=== PATIENT | male | born 1945 | race Caucasian/White ===

== ENCOUNTER 2016-11-11 10:32 | Inpatient (IN) | payer MEDICARE ==
[~2016-11-11] VITALS: Ht 172.7 cm; Wt 92.5 kg
[2016-11-11] VITALS (10 sets, daily range): BP systolic 131–177; BP diastolic 67–87; PULSE 58–92; RESP 16–20; TEMP 97.5–98.7; O2SAT 96–99
[~2016-11-11 10:32] MED LIST: AMLO5TAB96 PO; ASPI81 PO; CLOP75 PO; GLYB1TAB51 PO; KLOR20TA6 PO; LIPI80TA16; LOTE20TA3; SITA100 PO; TELM40 PO
[2016-11-11] MEDS ORDERED: SODIUM CHLORIDE 0.9% FLUSH 10 ML FLUSH IVF PRN (10:45)
--- NOTE | 2016-11-11 10:58 | PD ---
HPI Chief Complaint: Cardiac Complaint Time Seen by Provider: 10:46 Travel History International Travel<30 days: No Contact w/Intl Traveler<30days: No Traveled to known affect area: No History of Present Illness HPI Patient is a 71-year-old male presents emergency department with exertional chest pain for the past few days. Patient states that the pain does not radiate but is accompanied with some mild shortness of breath mild nausea without vomiting. States she's never had this before. States he has a history of stents is followed by Dr. Grossman his last nuclear stress test was less than a year ago. He called Dr. Grossman today who recommended that he come to the emergency department the scene. He took a baby aspirin this morning he is currently chest pain-free and states the pain only occurs with exertion. Denies any abdominal pain and vomiting constipation diarrhea headache or extremity pain. He took a baby aspirin this morning. PFSH Past Medical History Arthritis: Yes (FINGERS AND HANDS) Asthma: No Autoimmune Disease: No Heart Rhythm Problems: No Cancer: No Cardiovascular Problems: Yes High Cholesterol: Yes Chest Pain: No Congestive Heart Failure: No COPD: No Cerebrovascular Accident: No Diabetes: Yes Patient Takes Glucophage: No Gastrointestinal Disorders: No GERD: No Glaucoma: No Headaches: No Hepatitis: Yes (DRUG INDUCED HEP 10+ YRS AGO) Hiatal Hernia: No Hypertension: Yes Medical other: No Musculoskeletal: No Neurologic: No Respiratory: No Myocardial Infarction: No Seizures: No Sleep Apnea: No Thyroid Disease: No Ulcer: No Past Surgical History Surgical History: No Previous Surgery Abdominal Surgery: No AICD: No Cardiac Surgery: No Ear Surgery: No Endocrine Surgery: No Eye Surgery: No Genitourinary Surgery: No Gynecologic Surgery: No Neurologic Surgery: No Oral Surgery: Yes (ALL TEETH PULLED) Pacemaker: No Thoracic Surgery: No Other Surgery: Yes ([facility] EMBIL[employer]) Social History Alcohol Use: Yes (OCCASIONAL WINE) Tobacco Use: No Substance Use: No Allergies-Medications (Allergen,Severity, Reaction): Coded Allergies: Macrolides (Verified Allergy, Severe, 02/15/07) Uncoded Allergies: MYCIN (Allergy, Mild, 02/15/07) Reported Meds & Prescriptions Reported Meds & Active Scripts Active Reported Sm Magnesium (Magnesium) 250 Mg Tab 250 Mg PO DAILY Vitamin D-1000 (Cholecalciferol) 1,000 Unit Tab 2,000 Units PO DAILY Glipizide 5 Mg Tab 5 Mg PO BIDAC Take 30 minutes before a meal Januvia (Sitagliptin Phosphate) 50 Mg Tab 50 Mg PO DAILY Potassium Chloride ER (Potassium Chloride) 20 Meq Tab 20 Meq PO DAILY Telmisartan 80 Mg Tab 80 Mg PO HS Lipitor (Atorvastatin Calcium) 40 Mg Tab 40 Mg PO HS Lantus Solostar Pen Inj (Insulin Glargine) 300 Unit/3 Ml Pen 30 Units SQ HS Hydrochlorothiazide 25 Mg Tab 25 Mg PO DAILY Aspirin Low Dose (Aspirin) 81 Mg Chew 162 Mg CHEW DAILY Physical Exam Narrative GENERAL: Well-developed well-nourished, quite pleasant in no apparent distress. SKIN: Focused skin assessment warm/dry. HEAD: Atraumatic. Normocephalic. EYES: Pupils equal and round. No scleral icterus. No injection or drainage. ENT: No nasal bleeding or discharge. Mucous membranes pink and moist. NECK: Trachea midline. No JVD. CARDIOVASCULAR: Regular rate and rhythm. No murmur appreciated. Minimally tachycardic when he laughs. RESPIRATORY: No accessory muscle use. Clear to auscultation. Breath sounds equal bilaterally. GASTROINTESTINAL: Abdomen soft, non-tender, nondistended. Hepatic and splenic margins not palpable. MUSCULOSKELETAL: No obvious deformities. No clubbing. No cyanosis. No edema. NEUROLOGICAL: Awake and alert. No obvious cranial nerve deficits. Motor grossly within normal limits. Normal speech. PSYCHIATRIC: Appropriate mood and affect; insight and judgment normal. Data Data Last Documented VS Vital Signs Date Time Temp Pulse Resp B/P Pulse Ox O2 Delivery O2 Flow Rate FiO2 11/11/16 11:46 66 20 143/80 98 Room Air 11/11/16 10:33 97.5 Orders Electrocardiogram (11/11/16 10:37) Ckmb (Isoenzyme) Profile (11/11/16 10:37) Complete Blood Count With Diff (11/11/16 10:37) Comprehensive Metabolic Panel (11/11/16 10:37) Magnesium (Mg) (11/11/16 10:37) Prothrombin Time / Inr (Pt) (11/11/16 10:37) Act Partial Throm Time (Ptt) (11/11/16 10:37) Troponin I (11/11/16 10:37) Chest, Single Ap (11/11/16 10:37) Ecg Monitoring (11/11/16 10:37) Iv Access Insert/Monitor (11/11/16 10:37) Oximetry (11/11/16 10:37) Oxygen Administration (11/11/16 10:37) Sodium Chloride 0.9% Flush (Ns Flush) (11/11/16 10:45) Ct Pulmonary Angiogram (11/11/16 ) Aspirin Chew (Aspirin Chew) (11/11/16 11:30) Aspirin Chew (Aspirin Chew) (11/11/16 11:30) Iohexol 350 Inj (Omnipaque 350 Inj) (11/11/16 12:25) Electrocardiogram (11/11/16 ) Troponin I (11/11/16 12:57) Heparin Infusion CECIL.Q1H (11/11/16 13:37) Heparin Inj (Heparin Inj) (11/11/16 19:45) Heparin Inj (Heparin Inj) (11/11/16 19:45) Heparin-D5w Inj (Heparin-D5w Inj) (11/11/16 13:45) Cbc No Diff, Includes Plts (11/14/16 06:00) Act Partial Throm Time (Ptt) (11/11/16 20:37) Occult Blood (Hemoccult) Stool (11/11/16 13:37) Nitroglycerin 2% Oint (Nitroglycerin 2% (11/11/16 13:45) Heparin Inj (Heparin Inj) (11/11/16 13:45) Consult Cardiology (11/11/16 ) (Hub Use Only)Inp Phy Cons/Ref (11/11/16 ) Admit Order (Ed Use Only) (11/11/16 ) Labs Laboratory Tests Test 11/11/16 11/11/16 11:04 14:00 White Blood Count 9.9 TH/MM3 Red Blood Count 4.51 MIL/MM3 Hemoglobin 14.2 GM/DL Hematocrit 39.6 % Mean Corpuscular Volume 87.8 FL Mean Corpuscular Hemoglobin 31.4 PG Mean Corpuscular Hemoglobin 35.7 % Concent Red Cell Distribution Width 13.0 % Platelet Count 150 TH/MM3 Mean Platelet Volume 9.7 FL Neutrophils (%) (Auto) 73.5 % Lymphocytes (%) (Auto) 16.5 % Monocytes (%) (Auto) 7.1 % Eosinophils (%) (Auto) 2.3 % Basophils (%) (Auto) 0.6 % Neutrophils # (Auto) 7.2 TH/MM3 Lymphocytes # (Auto) 1.6 TH/MM3 Monocytes # (Auto) 0.7 TH/MM3 Eosinophils # (Auto) 0.2 TH/MM3 Basophils # (Auto) 0.1 TH/MM3 CBC Comment DIFF FINAL Differential Comment Prothrombin Time 10.2 SEC Prothromb Time International 0.9 RATIO Ratio Activated Partial 23.1 SEC Thromboplast Time Sodium Level 143 MEQ/L Potassium Level 3.2 MEQ/L Chloride Level 110 MEQ/L Carbon Dioxide Level 23.8 MEQ/L Anion Gap 9 MEQ/L Blood Urea Nitrogen 19 MG/DL Creatinine 0.99 MG/DL Estimat Glomerular Filtration 75 ML/MIN Rate Random Glucose 176 MG/DL Calcium Level 8.4 MG/DL Magnesium Level 1.2 MG/DL Total Bilirubin 0.5 MG/DL Aspartate Amino Transf 35 U/L (AST/SGOT) Alanine Aminotransferase 30 U/L (ALT/SGPT) Alkaline Phosphatase 42 U/L Total Creatine Kinase 95 U/L Troponin I 0.09 NG/ML 0.12 NG/ML Total Protein 5.9 GM/DL Albumin 2.9 GM/DL MDM Medical Decision Making Medical Screen Exam Complete: Yes Emergency Medical Condition: Yes Interpretation(s) EKG shows sinus rhythm with normal axis normal R-wave progression. No concerning ST segment changes. Intervals within normal limits. This normal EKG Differential Diagnosis Chest pain, ACS, AMI, coronary disease, unstable angina. Narrative Course Patient was discussed with Dr. Grossman recommends admitting the patient to hospital full ACS protocol including heparinization. He will see and evaluate the patient later today. He is moving the patient's case and stated that it sounded like the patient was having unstable angina when he called the office today. I did discuss with Dr. Grossman as well as the patient troponin elevation to 0.09, CT PE protocol was negative. Many of his labs shows some very minimal electrolyte abnormalities nothing critical. Was then discussed with Dr. Good who agrees for admission. Diagnosis Primary Impression: Chest pain Qualified Code: R07.9 - Chest pain, unspecified type Additional Impressions: Elevated troponin Angina at rest Admitting Information Admitting Physician Requests: Admit Condition: Stable Elder Turk MD Nov 11, 2016 10:57
[2016-11-11 11:18] LABS: AUTOMATED NEUTROPHIL # 7.2 TH/MM3 (1.8-7.7); BASOPHIL # 0.1 TH/MM3 (0-0.2); BASOPHIL % 0.6 % (0.0-2.0); EOSINOPHIL # 0.2 TH/MM3 (0-0.4); EOSINOPHIL % 2.3 % (0.0-4.0); HEMATOCRIT 39.6 % (39.0-51.0); HEMO FLAGS DIFF FINAL; LYMPH % 16.5 % (9.0-44.0); LYMPHOCYTE # 1.6 TH/MM3 (1.0-4.8); MEAN CELL VOLUME 87.8 FL (80.0-100.0); MEAN CORPUSCULAR HEMOGLOBIN 31.4 PG (27.0-34.0); MEAN CORPUSCULAR HGB CONC 35.7 % (32.0-36.0); MONO % 7.1 % (0.0-8.0); NEUT % 73.5 % (16.0-70.0); PLATELET COUNT 150 TH/MM3 (150-450); RED BLOOD COUNT 4.51 MIL/MM3 (4.50-5.90); WHITE BLOOD COUNT 9.9 TH/MM3 (4.0-11.0)
[2016-11-11] MEDS ORDERED: ASPIRIN 81 MG CHEW TAB CHEW ONE ×2 (11:30)
[2016-11-11 11:33] LABS: APTT (PATIENT) 23.1 SEC (24.3-30.1); INTERNATIONAL NORMALIZED RATIO 0.9 RATIO; PROTHROMBIN TIME - PATIENT 10.2 SEC (9.8-11.6)
[2016-11-11 11:40] LABS: ALKALINE PHOSPHATASE 42 U/L (45-117); ALT (GPT) 30 U/L (12-78); ANION GAP 9 MEQ/L (5-15); AST (GOT) 35 U/L (15-37); BICARBONATE 23.8 MEQ/L (21.0-32.0); BLOOD UREA NITROGEN 19 MG/DL (7-18); CHLORIDE 110 MEQ/L (98-107); CREATINE KINASE 95 U/L (39-308); GLOMERULAR FILTRATION RATE 75 ML/MIN (>89); MAGNESIUM 1.2 MG/DL (1.5-2.5); POTASSIUM 3.2 MEQ/L (3.5-5.1); SODIUM (NA) 143 MEQ/L (136-145); TOTAL BILIRUBIN ADULT 0.5 MG/DL (0.2-1.0)
[2016-11-11] MEDS ORDERED: TELM1TAB2 PO (11:42)
[2016-11-11] MEDS ORDERED: HYDR25TA5 PO (11:42)
[2016-11-11] MEDS ORDERED: LIPI40TA PO (11:42)
[2016-11-11] MEDS ORDERED: GLIP5TAB8 PO (11:42)
[2016-11-11] MEDS ORDERED: POTA-163 PO (11:42)
[2016-11-11] MEDS ORDERED: ASPI81CH37 CHEW (11:42)
[2016-11-11] MEDS ORDERED: SM M250T PO (11:42)
[2016-11-11] MEDS ORDERED: VITA1000 PO (11:42)
[2016-11-11] MEDS ORDERED: LANTINJ SQ (11:42)
[2016-11-11] MEDS ORDERED: SITA50 PO (11:42)
--- NOTE | 2016-11-11 12:04 | RADRPT ---
EXAM DATE/TIME: 11/11/2016 10:55 [facility] COMPARISON: No previous studies available for comparison. INDICATIONS : Chest pain when walking. MEDICAL HISTORY : None. SURGICAL HISTORY : Coronary artery stent. ENCOUNTER: Initial ACUITY: 1 day PAIN SCORE: 2/10 LOCATION: Bilateral chest FINDINGS: A single view of the chest demonstrates the lungs to be symmetrically aerated without evidence of mas s, infiltrate or effusion. The cardiomediastinal contours are unremarkable. Osseous structures are intact. CONCLUSION: No acute disease. Elder Mckenzie MD on November 11, 2016 at 11:54 Board Certified Radiologist. This report was verified electronically.
[2016-11-11] MEDS ORDERED: IOHEXOL 350 MG/ML 10 ML VIAL (for RAD DIAG) IV ONE (12:25)
--- NOTE | 2016-11-11 12:37 | RADRPT ---
EXAM DATE/TIME: 11/11/2016 12:16 [facility] COMPARISON: No previous studies available for comparison. INDICATIONS : Chest pain with exertion. IV CONTRAST: 73 cc Omnipaque 350 (iohexol) IV RADIATION DOSE: 23.08 CTDIvol (mGy) MEDICAL HISTORY : Cardiovascular disease. Hypertension. Diabetes mellitus type 2. SURGICAL HISTORY : None. ENCOUNTER: Initial ACUITY: 1 day PAIN SCALE: 3/10 LOCATION: Bilateral chest TECHNIQUE: Volumetric scanning of the chest was performed using a pulmonary embolism protocol MIP images were re constructed. Using automated exposure control and adjustment of the mA and/or kV according to patien t size, radiation dose was kept as low as reasonably achievable to obtain optimal diagnostic quality images. DICOM format image data is available electronically for review and comparison. FINDINGS: PULMONARY ARTERIES: Examination is limited due to suboptimal bolus timing. No filling defects are seen in the pulmonary a rteries to the segmental level. More distal segmental and subsegmental levels are incompletely evalua belinda. LUNGS: Mild upper lobe predominant paraseptal emphysema. Minimal bilateral posterior lower lobe ground glass opacities likely reflecting atelectasis. 6 mm subpleural nodule in the anterior right upper lobe. PLEURAE: There is no pleural thickening or pleural effusion. MEDIASTINUM: There is good visualization of the great vessels of the middle mediastinum. No evidence of mediastin al or hilar adenopathy/mass. Moderate to severe coronary artery calcifications. MUSCULOSKELETAL: Within normal limits for patient age. MISCELLANEOUS: Incidental note of a subcentimeter nodule in the inferior right thyroid lobe. The visualized upper ab dominal organs demonstrate no acute abnormality. CONCLUSION: 1. Limited examination due to suboptimal contrast bolus timing. No evidence for pulmonary artery and was sent to the segmental level. More distal segmental and subsegmental level branches are not adequa tely evaluated. 2. Moderate to severe coronary artery calcifications. 3. 6 mm solid subpleural nodule in the anterior right upper lobe with background of mild upper lobe p redominant paraseptal emphysema. Followup examination is recommended in 6 months to document stabilit y per 2017 Fleischner criteria. 4. Subcentimeter right inferior thyroid lobe nodule. This may be further evaluated with ultrasound on outpatient basis. Theo Mcgill MD on November 11, 2016 at 12:27 Board Certified Radiologist. This report was verified electronically.
[2016-11-11] MEDS ORDERED: HEPARIN SODIUM - IV 10,000 UNITS/10 ML VIAL IV ONE (13:45)
[2016-11-11] MEDS ORDERED: HEPARIN-D5W INJ 250 ML IV SCH (13:45)
[2016-11-11] MEDS ORDERED: NITROGLYCERIN 2% OINT 1 GM PACKET TOPICAL ONE (13:45)
[2016-11-11] MEDS ORDERED: ACETAMINOPHEN/HYDROcodone 325 MG/5 MG TAB PO PRN (14:30)
[2016-11-11] MEDS ORDERED: SODIUM CHLORIDE 0.9% FLUSH 10 ML FLUSH IV FLUSH PRN (14:30)
[2016-11-11] MEDS ORDERED: ACETAMINOPHEN 325 MG TAB PO PRN ×3 (14:30→17:45)
[2016-11-11] MEDS ORDERED: ONDANSETRON HCL 4 MG/2 ML VIAL IVP PRN (14:30)
[2016-11-11] MEDS ORDERED: LACTULOSE SYRUP 20 GM/30 ML CUP PO PRN (14:30)
[2016-11-11] MEDS ORDERED: SENNOSIDES 8.6 MG TAB PO PRN (14:30)
[2016-11-11] MEDS ORDERED: MAGNESIUM HYDROXIDE SUSP 30 ML CUP PO PRN (14:30)
[2016-11-11] MEDS ORDERED: MORPHINE SULFATE 4 MG/ML INJ IV PRN (14:30)
[2016-11-11] MEDS ORDERED: NALOXONE HCL 0.4 MG/ML AMP IV PRN (14:30)
[2016-11-11] MEDS ORDERED: BISACODYL 10 MG SUPP RECTAL PRN (14:30)
--- NOTE | 2016-11-11 15:05 | HHI.HP ---
cc: Leo Nation MD [facility] Service [facility] Primary Care Physician Leo Nation MD Admission Diagnosis Chest pain, elevated troponin Diagnoses: (1) Chest pain (2) Elevated troponin (3) Hypokalemia (4) Diabetes mellitus (5) Hypertension Chief Complaint: Chest pain Travel History International Travel<30 Days: No Contact w/Intl Traveler <30 Da: No Traveled to Known Affected Are: No History of Present Illness Patient is a 71-year-old male with history of coronary artery disease, diabetes. He presented to the emergency department with a 3 week history of chest discomfort. He describes a burning sensation in the center of his chest that does not radiate. This occurs with any exertion. Over the last few days it has gotten to the point where he cannot walk even short distances without developing this discomfort. He states that it has improved when he takes Tums, but he also sits down and rests at the same time. Pain only occurs with exertion. Denies chest pain currently. No associated dyspnea or diaphoresis. Review of Systems Constitutional: DENIES: Fever, Chills, Night Sweats Eyes: DENIES: Blurred vision, Vision loss Ears, nose, mouth, throat: DENIES: Hearing loss Respiratory: DENIES: Cough, Wheezing, Sputum production, Shortness of breath Cardiovascular: COMPLAINS OF: Chest pain, DENIES: Palpitations, Dyspnea on Exertion, Lower Extremity Edema Gastrointestinal: DENIES: Abdominal pain, Constipation, Diarrhea, Nausea, Vomiting Genitourinary: DENIES: Urinary frequency, Urinary incontinence, Urgency, Hematuria, Dysuria, Nocturia Musculoskeletal: DENIES: Joint pain, Muscle aches Integumentary: DENIES: Pruritus, Rash Hematologic/lymphatic: DENIES: Bruising Neurologic: DENIES: Headache Past Family Social History Past Medical History Coronary artery disease Diabetes mellitus Hypertension Hyperlipidemia Osteoarthritis Past Surgical History Umbilical hernia repair Bilateral hand trigger finger release Tooth extraction Reported Medications Sm Magnesium (Magnesium) 250 Mg Tab 250 Mg PO DAILY Vitamin D-1000 (Cholecalciferol) 1,000 Unit Tab 2,000 Units PO DAILY Glipizide 5 Mg Tab 5 Mg PO BIDAC Take 30 minutes before a meal Januvia (Sitagliptin Phosphate) 50 Mg Tab 50 Mg PO DAILY Potassium Chloride ER (Potassium Chloride) 20 Meq Tab 20 Meq PO DAILY Telmisartan 80 Mg Tab 80 Mg PO HS Lipitor (Atorvastatin Calcium) 40 Mg Tab 40 Mg PO HS Lantus Solostar Pen Inj (Insulin Glargine) 300 Unit/3 Ml Pen 30 Units SQ HS Hydrochlorothiazide 25 Mg Tab 25 Mg PO DAILY Aspirin Low Dose (Aspirin) 81 Mg Chew 162 Mg CHEW DAILY Allergies: Coded Allergies: Macrolides (Verified Allergy, Severe, 02/15/07) Uncoded Allergies: MYCIN (Allergy, Mild, 02/15/07) Family History Father at age 75 of a myocardial infarction Social History Quit smoking in 1989. Reports social alcohol use, 1-2 beers after playing golf. Denies illicit drug use. Physical Exam Vital Signs Vital Signs Date Time Temp Pulse Resp B/P Pulse Ox O2 Delivery O2 Flow Rate FiO2 11/11/16 14:40 98 21 11/11/16 11:46 66 20 143/80 98 Room Air 11/11/16 10:41 84 20 97 Room Air 11/11/16 10:41 86 18 166/79 97 Room Air 11/11/16 10:41 97 Room Air 11/11/16 10:33 97.5 92 20 177/84 96 Room Air Physical Exam GENERAL: Well-nourished, well-developed male in no acute distress. HEENT: Normocephalic, atraumatic. Pupils equal, round and reactive. Extraocular movements intact. No scleral icterus. No injection or drainage. Oropharynx is clear. Mucous membranes are moist. CARDIOVASCULAR: Regular rate and rhythm without murmurs, gallops, or rubs. RESPIRATORY: Clear to auscultation. No wheezes, rales, or rhonchi. Breathing is non-labored. GASTROINTESTINAL: Abdomen soft, obese, non-tender. EXTREMITIES: No lower extremity edema. No calf tenderness. PSYCH: Alert and oriented x 3. Laboratory Laboratory Tests Test 11/11/16 11/11/16 11:04 14:00 White Blood Count 9.9 Red Blood Count 4.51 Hemoglobin 14.2 Hematocrit 39.6 Mean Corpuscular Volume 87.8 Mean Corpuscular Hemoglobin 31.4 Mean Corpuscular Hemoglobin 35.7 Concent Red Cell Distribution Width 13.0 Platelet Count 150 Mean Platelet Volume 9.7 Neutrophils (%) (Auto) 73.5 Lymphocytes (%) (Auto) 16.5 Monocytes (%) (Auto) 7.1 Eosinophils (%) (Auto) 2.3 Basophils (%) (Auto) 0.6 Neutrophils # (Auto) 7.2 Lymphocytes # (Auto) 1.6 Monocytes # (Auto) 0.7 Eosinophils # (Auto) 0.2 Basophils # (Auto) 0.1 CBC Comment DIFF FINAL Differential Comment Prothrombin Time 10.2 Prothromb Time International 0.9 Ratio Activated Partial 23.1 Thromboplast Time Sodium Level 143 Potassium Level 3.2 Chloride Level 110 Carbon Dioxide Level 23.8 Anion Gap 9 Blood Urea Nitrogen 19 Creatinine 0.99 Estimat Glomerular Filtration 75 Rate Random Glucose 176 Calcium Level 8.4 Magnesium Level 1.2 Total Bilirubin 0.5 Aspartate Amino Transf 35 (AST/SGOT) Alanine Aminotransferase 30 (ALT/SGPT) Alkaline Phosphatase 42 Total Creatine Kinase 95 Troponin I 0.09 0.12 Total Protein 5.9 Albumin 2.9 Result Diagram: 11/11/16 1104 11/11/16 1104 Imaging Last Impressions Chest X-Ray 11/11/16 1037 Signed Impressions: Service Date/Time: Friday, November 11, 2016 10:55 - CONCLUSION: No acute disease. Elder Mckenzie MD CT Angiography 11/11/16 0000 Signed Impressions: Service Date/Time: Friday, November 11, 2016 12:16 - CONCLUSION: 1. Limited examination due to suboptimal contrast bolus timing. No evidence for pulmonary artery and was sent to the segmental level. More distal segmental and subsegmental level branches are not adequately evaluated. 2. Moderate to severe coronary artery calcifications. 3. 6 mm solid subpleural nodule in the anterior right upper lobe with background of mild upper lobe predominant paraseptal emphysema. Followup examination is recommended in 6 months to document stability per 2017 Fleischner criteria. 4. Subcentimeter right inferior thyroid lobe nodule. This may be further evaluated with ultrasound on outpatient basis. Theo Mcgill MD Assessment and Plan Assessment and Plan 1. Angina: Patient developing burning chest pain with any exertion. Resolves with rest. He has been evaluated by Dr. Barajas, cardiology. Plan for cardiac catheterization this afternoon. Heparin drip. Continue aspirin. 2. Hypertension: Continue HCTZ, telmisartan. 3. Hyperlipidemia: Continue Lipitor. 4. Diabetes mellitus: Continue glipizide, Januvia, Lantus. Diabetic diet following procedure. Monitor Accu-Cheks and cover with sliding scale insulin. 5. Hypokalemia: Supplement potassium. 6. DVT prophylaxis: Heparin drip. Discussed Condition With Dr. Barajas Problem Qualifiers (1) Chest pain: Catalino Good MD Nov 11, 2016 15:05
[2016-11-11] MEDS ORDERED: DEXTROSE 50% IN WATER 50 ML VIAL(D50) IV PRN (15:15)
[2016-11-11] MEDS ORDERED: GLUCAGON 1 MG/ML VIAL OTHER PRN (15:15)
[2016-11-11] MEDS ORDERED: HEPARIN-NS/PF INJ 500 ML ONE (15:38)
[2016-11-11] MEDS ORDERED: MIDAZOLAM HCL 2 MG/2 ML VIAL ONE ×3 (15:50→16:35)
[2016-11-11] MEDS ORDERED: HEPARIN SODIUM - IV 10,000 UNITS/10 ML VIAL ONE (15:51)
[2016-11-11] MEDS ORDERED: VERAPAMIL HCL 5 MG/2 ML VIAL ONE (15:51)
[2016-11-11] MEDS: INSULIN ASPART SUPPLEMENTAL SCALE SQ SCH ×2 (16:00→21:25)
[2016-11-11] MEDS: glipiZIDE 5 MG TAB PO SCH (16:00)
[2016-11-11] MEDS ORDERED: IOHEXOL 350 MG/ML 50 ML BTL (for Cath Lab) OTHER ONE (16:15)
[2016-11-11] MEDS ORDERED: IOHEXOL 350 MG/ML 100 ML BTL (for Cath Lab) OTHER ONE (16:15)
[2016-11-11] MEDS ORDERED: PRASUGREL 10 MG TAB ONE (17:30)
[2016-11-11] MEDS ORDERED: ATROPINE SULFATE 1 MG/ML VIAL IV PRN (17:45)
[2016-11-11] MEDS ORDERED: ONDANSETRON HCL 4 MG/2 ML VIAL IV PRN (17:45)
[2016-11-11] MEDS ORDERED: MISC INFORMATION XX ONE (17:45)
[2016-11-11] MEDS ORDERED: PRASUGREL 10 MG TAB PO ONE (17:45)
--- NOTE | 2016-11-11 17:50 | CATHPROC ---
[employer] HIS Report Study Information Study Number Admission Scheduled Start Study Start [id number] Nov 11 2016 2:12PM 11/11/2016 Nov 11 2016 3:28PM [place] [facility] Cardiac Catheterization Admit Source Facility Department Emergency department [facility] - [facility] Physician and Clinical Staff Initial Santos Mckeon Senior It Recruitermarta Mary RN, Jaclyn Cook RN Other cathlab, cathlab Recorder Nisha Lake,BRICK SHADER TECH2 Scrub Tatiana Choi RCIS TECH2 Procedures Performed Procedure Location (Site) Vessel Name Coronary Angiograms LCA Left Coronary Coronary Angiograms RCA Right Coronary Drug Eluting Inflatio RCA Prox Right Coronary LV Gram-hand inj. LV LV Ventricle PTCA RCA Right Coronary PTCA RCA Mid Right Coronary PTCA RCA Prox Right Coronary PTCA ADD ON'S Wire insertion Radial (right) Radial Art. Equipment Time Detective Bureau Chief Description Size Mfg Part Number Used/Scraped COPILOT VALVE, BLEEDBACK [id number] 16:22 [employer]OTT [employer] Used CONTROL *[id number] COPILOT VALVE, BLEEDBACK [id number] 16:23 [employer] Used CONTROL *[id number] WIRE, BALANCE MIDDLEWEIGHT [id number] 16:53 [employer] 190CM Used 190CM *[id number] WIRE, BALANCE MIDDLEWEIGHT [id number] 16:58 [employer] 190CM Used 190CM *[id number] TRANSDUCER, TRUWAVE [id number] 15:44 SMITH BRANDT * Used W/STOCKCOCK *[id number] BALLOON, 2.5 X 10MM [id number] 17:03 [employer] 2.5 10MM Used FLEXTOME CUTTING *[id number] WIRE, CHOICE PT EX. SUPPORT [id number] 16:51 [employer] 180CM Used 182CM *8462626 534-518T *0520219 534-520T *8032434 [id number] *1110489 534-521T *4850724 534-521T *[id number] [id number] 15:44 MEDLINE IND[employer]ES PACK, CCL CUSTOM * Used *[id number] 15:44 Dialectica SUPPORT, ARTERIAL ADULT 83119 Used BALLOON, 2.5 X 8MM NC [id number] 16:30 MEDTRONIC 8MM Used EUPHORA *[id number] BALLOON, 3.0 X 6MM NC [id number] 17:08 MEDTRONIC 6MM Used EUPHORA *8809577 BALLOON, 3.0 X 8MM NC [id number] 16:43 MEDTRONIC 8MM Used EUPHORA *1478226 BALLOON, 3.25 X 6MM NC [id number] 17:19 MEDTRONIC 6MM Used EUPHORA *5340041 BALLOON, 3.5 X 6MM NC [id number] 17:18 MEDTRONIC 6MM Used EUPHORA *0344798 BALLOON, 4.0 X 12MM NC [id number] 16:24 MEDTRONIC 12MM Used EUPHORA *1263872 STENT, 4.0 12 RESOLUTE [id number] 16:48 MEDTRONIC 4.0 12 Used INTEGRITY RX *[id number] [id number] 16:22 VPEP 30 HIPOLITO INDEFLATOR Used *7388515 BAND, RADIAL COMPRESSION TR [id number] 17:27 [employer] MEDICAL 29CM Used LARGE 29 *[id number] [id number] 15:44 VPEP WIRE, 3MMJ .035 180CM 180CM Used *2004759 [id number] 15:44 NAMIC MANIFOLD, 4 PORT * Used *6942813 16:19 NYCOMED OMNIPAQUE, 300 MG, 150ML 150ML [id number] Used 16:22 NYCOMED OMNIPAQUE, 300 MG, 50ML 50ML [id number] Used 15:44 NYCOMED OMNIPAQUE, 350 MG, 150ML 150ML [id number] Used [id number] 15:44 CARREON MEDICAL BLANKET,WARM AIR CCL * Used *2227766 SHEATH, FR6 TRANSRADIAL 15:44 TERUMO MEDICAL FR 6 [id number] Used SLENDER 10CM WIRE, RUNTHROUGH NS FLOPPY 25-1011 16:24 TERUMO MEDICAL 180CM Used .014 180CM *8352503 WIRE, RUNTHROUGH NS FLOPPY 25-1011 16:25 [employer]ICAL 180CM Used .014 180CM *9467234 WIRE, RUNTHROUGH NS FLOPPY 25-1011 16:34 TERUMO MEDICAL 180CM Used .014 180CM *1666145 16:40 VASCULAR SOLUTIONS CATHETER, FR6 GUIDELINER FR 6 5571 *[id number] Used Equipment Model, Serial, Lot Number and Expiration Data Description Model Number Serial Number Lot Number Expiration Date BALLOON, 3.0 X 8MM NC EUPHORA [id number] 08-26-2018 STENT, 4.0 12 RESOLUTE [id number] 11-11-2017 INTEGRITY RX WIRE, CHOICE PT EX. SUPPORT [id number] 04-15-2018 182CM History: Current Medications Medication Dosage/Unit Route Frequency Last Date/Time Taken Insulin Glypizide Statins (any) History: Allergies Allergy Reaction Macrolides MYCIN History: Risk Factors Family History of Hypertension Dyslipidemia Previous TN Previous Heart Failure Premature CAD Yes Yes No No No Prior Valve Prior PCI Prior PCIDate Prior CABG Surgery No Yes 02/15/2007 No Cerebrovascular Peripheral Artery Chronic Lung On Dialysis Diabetes Diabetes Therapy Disease Disease Disease No No No No Yes Insulin History: Symptoms/Diagnosis Selection Items Chest pain History: Stress Tests Stress or Imaging Studies Performed No History: TN/CV Data Previous Cath Date 02/15/2007 History: Other Current Smoker No Labs Hgb (g/dl) Hct (%) RBC (MIL/MM3) WBC (l/cumm) Platelets (thousands) 11.60-17.00 35.00-51.00 4.00-5.90 4.00-11.00 150.00-450.00 14.2 39.6 4.5 9.9 150 Glucose (mg/dl) BUN (mg/dl) Creatinine (mg/dl) BUN:Creatinine (1:x) 74.00-106.00 7.00-18.00 0.50-1.30 10.00-20.00 176 19 0.9 21.1 Na (meq/l) K (meq/l) Cl (meq/l) CO2 (mmol/L) Ca (mg/dl) 136.00-145.00 3.50-5.10 98.00-107.00 21.00-32.00 8.50-10.10 143 3.2 110 23.8 8.4 PT (sec) PTT (sec) INR (PTT:PT) 9.80-11.60 24.30-30.10 0.90-1.10 10.2 23.1 0.9 CPK (u/l) CPK-MB (ng/ML) 26.00-308.00 0.50-3.60 95 Not Drawn Medication Medication Total Dose (Bolus/Oral) Medication Total Dosage/Unit 1% XYLOCAINE 20 mL EFFIENT 60 mg FENTANYL 150 mcg RADIAL COCKTAIL 5 mL (Bolus) VERSED 5 mg Medications (Bolus/Oral) Medication Time Given Dosage/Unit Administered By Reason FENTANYL 11/11/2016 4:10:16 PM 50 mcg Laurent Mary RN 50 mcg FENTANYL given in lab by Laurent Mary RN via Peripheral IV. Ordered by Santos Reyes. VERSED 11/11/2016 4:11:25 PM 2 mg Laurent Mary RN 2 mg VERSED given in lab by Laurent Mary RN via Peripheral IV. Ordered by Santos Reyes. 1% XYLOCAINE 11/11/2016 4:12:24 PM 20 mL Santos Reyes 20 mL 1% XYLOCAINE given in lab by Santos Reyes in Right Wrist via Subcutaneous. Ordered by Santos Foster. Ntg 200mcg Verapamil 2.5mg Heparin RADIAL COCKTAIL 11/11/2016 4:14:25 PM 5 mL (Bolus) Santos Reyes 2500U 5 mL (Bolus) RADIAL COCKTAIL given in lab by Santos Reyes via Radial. Using [Solution Name]. Ord ered by Santos Reyes. Reason: Ntg 200mcg Verapamil 2.5mg Heparin 2500U. VERSED 11/11/2016 4:21:27 PM 1 mg Laurent Mary RN 1 mg VERSED given in lab by Laurent Mary RN via Peripheral IV. Ordered by Santos Reyes. VERSED 11/11/2016 4:34:53 PM 1 mg Laurent Mary RN 1 mg VERSED given in lab by Laurent Mary RN via Peripheral IV. Ordered by Santos Reyes. VERSED 11/11/2016 4:57:36 PM 1 mg Laurent Mary RN 1 mg VERSED given in lab by Laurent Mary RN via Peripheral IV. Ordered by Santos Reyes. FENTANYL 11/11/2016 5:17:33 PM 50 mcg Laurent Mary RN 50 mcg FENTANYL given in lab by Laurent Mary RN in Left Antecubital via Peripheral IV. Ordered by Santos Soto. FENTANYL 11/11/2016 5:26:42 PM 50 mcg Laurent Mary RN 50 mcg FENTANYL given in lab by Laurent Mary RN in Left Antecubital via Peripheral IV. Ordered by Santos Soto. EFFIENT 11/11/2016 5:30:41 PM 60 mg Laurent Mary RN 60 mg EFFIENT given in lab by Laurent Mary RN via Oral. Ordered by Santos Reyes. Medication (Drip) Medication Time Given Dosage/Unit Concentration/Unit Diluent (ml) Solution IV Solutions 11/11/2016 3:43:00 PM 0 mL (IV) 500 NaCl .9 IV Solutions given in lab by Laurent Mary RN in Left Antecubital via Peripheral IV. Pump/Drip Flow = 20 ml/hr using NaCl .9. Ordered by Santos Reyes. Initial Case Assessment Cardiovascular HR Rhythm NIBP Chest Pain 86 REG 160/92 0 Edema Present Skin color Skin None Normal Warm Circulatory - Right Pulses Dorsalis Pedis Femoral Radial 3 3 3 Scale (0,1,2,3,4,d) Scale (0,1,2,3,4,d) Circulatory - Lower Extremities Color Lower Right Normal Neurological State Oriented to time-place- Alert Moves all extremities person Respiration - General Respiration Rate SpO2 (%) (B/min) 14 99 Initial Case Assessment Cardiovascular HR Rhythm NIBP Chest Pain 66 REG 122/77 0 Edema Present Skin color Skin None Normal Warm Circulatory - Right Pulses Dorsalis Pedis Femoral Radial 3 3 3 Scale (0,1,2,3,4,d) Scale (0,1,2,3,4,d) Circulatory - Lower Extremities Color Lower Right Normal Neurological State Oriented to time-place- Alert Moves all extremities person Respiration - General Respiration Rate SpO2 (%) (B/min) 14 97 Chronological Log Time Study Chronological Log 15:42:31 Patient arrived via Bed. 15:42:32 Patient Name, D.O.B, / Armband Verified By R.N. 15:42:32 Consent signed by the physician and the patient and verified by the [facility] [employer] staff. 15:42:34 Pre-op and post- op instructions given; patient acknowledges understanding of instructions. 15:42:48 Allens test performed on the right radial and ulnar artery. 15:42:53 Patient has been NPO for More than 6Hrs. 15:42:54 NO Skin Breakdown- 15:42:55 Patient Warmer Placed on the Table. 15:42:56 Jasiel Prominences Protected 15:42:59 A # 20 IV was noted in the Antecubital (left). Grade = 0 IV Solutions given in lab by Laurent Mary RN in Left Antecubital via Peripheral IV. Pump/Drip F low = 20 ml/hr using NaCl 15:43:00 .9. Ordered by Santos Reyes. 15:43:03 History and physical on the chart or being dictated. Vitals capture started with the following parameters, Patient=Adult, Interval=5 min, Initial Pr ypnkso=920 mmHg, 15:47:05 Deflation Rate=5 mmHg Vitals capture started with the following parameters, Patient=Adult, Interval=5 min, Initial Pr xlsrus=339 mmHg, 15:49:45 Deflation Rate=5 mmHg 15:50:23 HR=92 bpm, YZIC=961/85 mmhg, SpO2=95.0 %, Resp=16 B/min, Pain=0, Maria De Jesus=10, Maynard=2 15:50:23 Reference ECG taken 15:52:22 HR=86 bpm, GEKB=715/84 mmhg, SpO2=95.0 %, Resp=18 B/min, Pain=0, Maria De Jesus=10, Maynard=2 15:54:21 HR=88 bpm, YBWD=958/89 mmhg, SpO2=94.0 %, Resp=27 B/min, Pain=0, Maria De Jesus=10, Maynard=2 15:56:24 HR=86 bpm, QEXS=150/85 mmhg, SpO2=96.0 %, Resp=15 B/min, Pain=0, Maria De Jesus=10, Maynard=2 15:58:25 HR=86 bpm, CVVE=202/86 mmhg, SpO2=97.0 %, Resp=13 B/min, Pain=0, Maria De Jesus=10, Maynard=2 16:00:23 HR=89 bpm, OKSC=208/84 mmhg, SpO2=95.0 %, Resp=20 B/min, Pain=0, Maria De Jesus=10, Maynard=2 16:02:24 HR=88 bpm, DQYI=575/90 mmhg, SpO2=96.0 %, Resp=16 B/min, Pain=0, Maria De Jesus=10, Maynard=2 16:02:51 Pressure channel 1 zeroed. 16:04:23 HR=89 bpm, RATR=628/92 mmhg, Resp=9 B/min, Pain=0, Maria De Jesus=10, Maynard=2 Assessment: Initial Case, HR=86 BPM, Rhythm=REG, QHFA=715/92 mmhg, Chest Pain=0, Edema=None, Color=Normal, Skin = Warm Right Pulses: Antwan Ped=3, Femoral=3, Radial=3 16:05:07 Lower Right Extremities: Color=Normal Neurological: State=Alert, Ox3, ORELLANA Respiration: Resp=14 B/min, SpO2=99 % 16:05:51 Right groin prepped with 2% chlorhexidine, and with a 3 min. waiting time. 16:05:56 Right groin prepped with 2% chlorhexidine, and with a 3 min. waiting time. 16:06:07 paged 16:06:28 HR=91 bpm, IAJX=690/81 mmhg, SpO2=98.0 %, Resp=15 B/min, Pain=0, Maria De Jesus=10, Maynard=2 16:06:28 HEPARIN DISCONTINUED IN ER 16:08:23 HR=91 bpm, WUDB=362/88 mmhg, SpO2=98.0 %, Resp=20 B/min, Pain=0, Maria De Jesus=10, Maynard=2 16:10:16 50 mcg FENTANYL given in lab by Laurent Mary RN via Peripheral IV. Ordered by Susanne Reyes. 16:10:28 HR=92 bpm, YEAI=901/82 mmhg, SpO2=97.0 %, Resp=13 B/min, Pain=0, Maria De Jesus=10, Maynard=2 16:10:35 MD arrived. 16:11:25 2 mg VERSED given in lab by Laurent Mary RN via Peripheral IV. Ordered by Santos Reyes . Time Out. Correct patient, correct procedure,correct physician, ,power injector not loaded with contrast with surgical 16:11:51 team present. Time Out Concurred by MD, individual staff and POWER TRANSFORMER REPAIR SUPERVISOR in procedure 16:12:05 Case Start 16:12:14 Verbal Stimulation=2 Physical Stimulation=2 Airway=2 Respiration=2 TOTAL=8. (0=absent, 1=li mited, 2=present) 16:12:24 HR=95 bpm, FRGH=679/89 mmhg, SpO2=97.0 %, Resp=14 B/min, Pain=0, Maria De Jesus=10, Maynard=2 20 mL 1% XYLOCAINE given in lab by Santos Reyes in Right Wrist via Subcutaneous. Ordered b y Amy, 16:12:24 Santos. 16:13:58 Access site was Radial Artery.RT 16:14:05 A wire was inserted via Radial (right). A SHEATH, FR6 TRANSRADIAL SLENDER 10CM FR 6 was advanced into the Radial (right) using the Perc utaneous 16:14:15 technique. 5 mL (Bolus) RADIAL COCKTAIL given in lab by Santos Reyes via Radial. Using [Solution Name ]. Ordered by Alivia 16:14:25 Santos Sotelo. Reason: Ntg 200mcg Verapamil 2.5mg Heparin 2500U. 16:14:27 HR=88 bpm, DNOR=747/80 mmhg, SpO2=93.0 %, Resp=16 B/min, Pain=0, Maria De Jesus=10, Maynard=2 A JR 4.0 INFINITI CATHETER FR 5 was advanced over a wire. OMNIPAQUE, 350 MG, 150ML 150ML was us ed for 16:15:24 injections. Recorded Pressure: LV, HR=90, Condition=Condition 1 16:15:49 (Left Ventricle) LV 129/1/6 16:16:02 The LV was manually injected with 10 cc's and visualized. OMNIPAQUE, 350 MG, 150ML 150ML us ed. Recorded Pressure: LV, Ao, HR=91, Condition=Condition 1 16:16:26 (Left Ventricle) LV 122/1/2, (Aorta) Ao 110/67/85 16:16:28 HR=90 bpm, DXFO=358/72 mmhg, SpO2=85.0 %, Resp=16 B/min, Pain=0, Maria De Jesus=10, Maynard=2 16:16:57 The RCA was injected and visualized at various angles. OMNIPAQUE, 350 MG, 150ML 150ML used . After removing the current catheter a JL 4.0 INFINITI CATHETER FR 5 was advanced over a WIRE, 3 MMJ .035 180CM 16:17:51 180CM. 16:18:25 HR=86 bpm, YNJS=691/75 mmhg, SpO2=92.0 %, Resp=16 B/min, Pain=0, Maria De Jesus=10, Maynard=2 16:19:08 The LCA was injected and visualized at various angles. OMNIPAQUE, 350 MG, 150ML 150ML used . 16:20:26 HR=81 bpm, KCZL=851/69 mmhg, SpO2=91.0 %, Resp=15 B/min, Pain=0, Maria De Jesus=10, Maynard=2 16:21:18 After removing the current catheter a catheter was advanced over a WIRE, 3MMJ .035 180CM 18 0CM. 16:21:27 1 mg VERSED given in lab by Laurent Mary RN via Peripheral IV. Ordered by Santos Reyes . 16:22:11 OMNIPAQUE, 300 MG, 50ML 50ML and 30 HIPOLITO INDEFLATOR added. 16:22:25 HR=80 bpm, OVZO=883/71 mmhg, SpO2=93.0 %, Resp=17 B/min, Pain=0, Maria De Jesus=10, Maynard=2 16:22:57 Activated Clotting Time Drawn A JR 4.0 GUIDE CATHETER FR 6 was advanced over a wire. OMNIPAQUE, 350 MG, 150ML 150ML was used for 16:24:08 injections. 16:24:29 HR=79 bpm, LALH=324/73 mmhg, SpO2=92.0 %, Resp=19 B/min, Pain=0, Maria De Jesus=10, Maynard=2 16:26:23 A WIRE, RUNTHROUGH NS FLOPPY .014 180CM 180CM was inserted via Radial (right). 16:26:26 HR=68 bpm, BIUE=660/66 mmhg, SpO2=90.0 %, Resp=17 B/min, Pain=0, Maria De Jesus=10, Maynard=2 16:27:01 Interventional wire has crossed the lesion A BALLOON, 4.0 X 12MM NC EUPHORA 12MM was inserted over WIRE, RUNTHROUGH NS FLOPPY .014 180CM 1 80CM 16:28:07 via the RCA Prox. 16:28:25 HR=70 bpm, VRBO=639/67 mmhg, SpO2=99 %, Resp=13 B/min, Pain=0, Maria De Jesus=10, Maynard=2 16:28:38 ACT (Normal Range 90-180) = 290 The previous balloon catheter was replaced by a BALLOON, 2.5 X 8MM NC EUPHORA 8MM over a WIRE, RUNTHROUGH 16:30:12 NS FLOPPY .014 180CM 180CM. 16:30:24 HR=76 bpm, LHLK=004/67 mmhg, SpO2=92.0 %, Resp=13 B/min, Pain=0, Maria De Jesus=10, Maynard=2 A BALLOON, 2.5 X 8MM NC EUPHORA 8MM over a WIRE, RUNTHROUGH NS FLOPPY .014 180CM 180CM in the R CA 16:32:08 Prox was inflated using a 30 HIPOLITO INDEFLATOR at 10 hipolito for 20 sec. 16:32:25 HR=69 bpm, JPVE=386/69 mmhg, SsZ8=516.0 %, Resp=17 B/min, Pain=0, Maria De Jesus=10, Maynard=2 A BALLOON, 2.5 X 8MM NC EUPHORA 8MM over a WIRE, RUNTHROUGH NS FLOPPY .014 180CM 180CM in the R CA 16:33:20 Prox was inflated using a 30 HIPOLITO INDEFLATOR at 10 hipolito for 20 sec. 16:33:28 Balloon Removed. 16:34:23 HR=74 bpm, XUTW=622/69 mmhg, SpO2=96.0 %, Resp=11 B/min, Pain=0, Maria De Jesus=10, Maynard=2 16:34:53 1 mg VERSED given in lab by Laurent Mary RN via Peripheral IV. Ordered by Santos Reyes . 16:35:28 A WIRE, RUNTHROUGH NS FLOPPY .014 180CM 180CM was inserted via Radial (right). 16:36:24 HR=72 bpm, MTVL=753/68 mmhg, QvO3=077.0 %, Resp=12 B/min, Pain=0, Maria De Jesus=10, Maynard=2 16:38:25 HR=73 bpm, VSFG=392/66 mmhg, SpO2=96.0 %, Resp=12 B/min, Pain=0, Maria De Jesus=10, Maynard=2 16:40:24 HR=70 bpm, ZDLD=163/65 mmhg, SpO2=96 %, Resp=12 B/min, Pain=0, Maria De Jesus=10, Maynard=2 A CATHETER, FR6 GUIDELINER FR 6 was advanced over a wire. OMNIPAQUE, 350 MG, 150ML 150ML was us ed for 16:40:55 injections. 16:42:27 HR=68 bpm, TQSQ=589/57 mmhg, SpO2=96.0 %, Resp=12 B/min, Pain=0, Maria De Jesus=10, Maynard=2 A BALLOON, 3.0 X 8MM NC EUPHORA 8MM was inserted over WIRE, RUNTHROUGH NS FLOPPY .014 180CM 180 CM via 16:42:44 the RCA Prox. A BALLOON, 3.0 X 8MM NC EUPHORA 8MM over a WIRE, RUNTHROUGH NS FLOPPY .014 180CM 180CM in the R CA 16:43:30 Prox was inflated using a 30 HIPOLITO INDEFLATOR at 12 hipolito for 26 sec. A BALLOON, 3.0 X 8MM NC EUPHORA 8MM over a WIRE, RUNTHROUGH NS FLOPPY .014 180CM 180CM in the R CA 16:44:19 Prox was inflated using a 30 HIPOLITO INDEFLATOR at 12 hipolito for 12 sec. 16:44:26 HR=70 bpm, XRKF=543/62 mmhg, SpO2=95.0 %, Resp=13 B/min, Pain=0, Maria De Jesus=10, Maynard=2 16:46:18 Balloon Removed. 16:46:26 HR=67 bpm, RUVI=202/62 mmhg, StD3=100.0 %, Resp=13 B/min, Pain=0, Maria De Jesus=10, Maynard=2 16:48:27 HR=76 bpm, XLYN=264/61 mmhg, UhA7=050.0 %, Resp=11 B/min, Pain=0, Maria De Jesus=10, Maynard=2 A STENT, 4.0 12 RESOLUTE INTEGRITY RX 4.0 12 was advanced through a JR 4.0 GUIDE CATHETER FR 6 over a WIRE, 16:49:32 RUNTHROUGH NS FLOPPY .014 180CM 180CM. A STENT, 4.0 12 RESOLUTE INTEGRITY RX 4.0 12 was deployed using a 30 HIPOLITO INDEFLATOR at 18 atmos pheres for 16:49:33 18 seconds in the RCA Prox. 16:50:23 Delivery device removed 16:50:28 HR=74 bpm, ZRRF=783/60 mmhg, SpO2=94.0 %, Resp=14 B/min, Pain=0, Maria De Jesus=10, Maynard=2 16:52:29 HR=71 bpm, XAXF=044/59 mmhg, SpO2=97.0 %, Resp=12 B/min, Pain=0, Maria De Jesus=10, Maynard=2 16:52:40 CHOICE PT Wire removed 16:53:39 A WIRE, BALANCE MIDDLEWEIGHT 190CM 190CM was inserted via Radial (right). 16:54:24 HR=72 bpm, OEJL=139/68 mmhg, SpO2=95 %, Resp=12 B/min, Pain=0, Maria De Jesus=10, Maynard=2 16:56:27 HR=77 bpm, ZSUF=709/68 mmhg, SpO2=98.0 %, Resp=12 B/min, Pain=0, Maria De Jesus=10, Maynard=2 16:57:36 1 mg VERSED given in lab by Laurent Mary RN via Peripheral IV. Ordered by Santos Reyes . 16:58:27 HR=70 bpm, SVXZ=175/66 mmhg, SpO2=96.0 %, Resp=11 B/min 17:00:28 HR=67 bpm, WHTM=345/65 mmhg, UwB1=062.0 %, Resp=12 B/min, Pain=0, Maria De Jesus=10, Maynard=2 17:02:27 HR=67 bpm, AOGN=478/66 mmhg, VzI7=363.0 %, Resp=12 B/min, Pain=0, Maria De Jesus=10, Maynard=2 A BALLOON, 2.5 X 10MM FLEXTOME CUTTING 2.5 10MM was inserted over WIRE, BALANCE MIDDLEWEIGHT 19 0CM 17:03:10 190CM via the RCA. 17:04:26 HR=63 bpm, SNOC=478/60 mmhg, SpO2=97.0 %, Resp=12 B/min, Pain=0, Maria De Jesus=10, Maynard=2 17:06:27 HR=69 bpm, GGWZ=843/71 mmhg, SpO2=93 %, Resp=13 B/min, Pain=0, Maria De Jesus=10, Maynard=2 17:06:42 Balloon Removed. 17:08:28 HR=64 bpm, PIEO=751/68 mmhg, SpO2=90.0 %, Resp=13 B/min, Pain=0, Maria De Jesus=10, Maynard=2 17:09:12 Activated Clotting Time Drawn 17:09:56 NIBP STAT measurement started. 17:10:28 HR=63 bpm, EZKT=741/65 mmhg, SpO2=85.0 %, Resp=13 B/min, Pain=0, Maria De Jesus=10, Maynard=2 A BALLOON, 3.0 X 6MM NC EUPHORA 6MM was inserted over WIRE, RUNTHROUGH NS FLOPPY .014 180CM 180 CM via 17:11:15 the RCA. A BALLOON, 3.0 X 6MM NC EUPHORA 6MM over a WIRE, RUNTHROUGH NS FLOPPY .014 180CM 180CM in the RCA 17:11:34 was inflated using a 30 HIPOLITO INDEFLATOR at 20 hipolito for 20 sec. 17:12:27 HR=66 bpm, UVYU=560/69 mmhg, SpO2=94.0 %, Resp=14 B/min, Pain=0, Maria De Jesus=10, Maynard=2 17:12:53 Balloon Removed. 17:14:28 HR=65 bpm, LLXQ=901/68 mmhg, SpO2=97.0 %, Resp=10 B/min A BALLOON, 3.5 X 6MM NC EUPHORA 6MM was inserted over WIRE, RUNTHROUGH NS FLOPPY .014 180CM 180 CM via 17:15:22 the RCA. 17:16:17 ACT (Normal Range 90-180) = 275 17:16:29 HR=66 bpm, WTSM=358/60 mmhg, RlN3=484.0 %, Resp=12 B/min, Pain=0, Maria De Jesus=10, Maynard=2 17:17:12 Balloon Removed. 17:17:33 50 mcg FENTANYL given in lab by Laurent Mary RN in Left Antecubital via Peripheral IV. Orde red by Santos Reyes. A BALLOON, 3.25 X 6MM NC EUPHORA 6MM was inserted over WIRE, BALANCE MIDDLEWEIGHT 190CM 190CM v ia the 17:18:13 RCA Mid. 17:18:30 HR=64 bpm, KGJQ=224/66 mmhg, SpO2=95.0 %, Resp=11 B/min, Pain=0, Maria De Jesus=10, Maynard=2 17:20:31 HR=64 bpm, IJFH=334/53 mmhg, CzC4=269.0 %, Resp=9 B/min, Pain=0, Maria De Jesus=10, Maynard=2 A BALLOON, 3.25 X 6MM NC EUPHORA 6MM over a WIRE, BALANCE MIDDLEWEIGHT 190CM 190CM in the RCA M id 17:21:23 was inflated using a 30 HIPOLITO INDEFLATOR at 22 hipolito for 14 sec. A BALLOON, 3.25 X 6MM NC EUPHORA 6MM over a WIRE, BALANCE MIDDLEWEIGHT 190CM 190CM in the RCA M id 17:22:24 was inflated using a 30 HIPOLITO INDEFLATOR at 24 hipolito for 10 sec. 17:23:02 HR=65 bpm, ZSKH=527/67 mmhg, SpO2=98.0 %, Resp=12 B/min, Pain=0, Maria De Jesus=10, Maynard=2 A BALLOON, 3.25 X 6MM NC EUPHORA 6MM over a WIRE, BALANCE MIDDLEWEIGHT 190CM 190CM in the RCA M id 17:23:36 was inflated using a 30 HIPOLITO INDEFLATOR at 30 hipolito for 30 sec. 17:24:26 HR=60 bpm, JXQW=693/71 mmhg, SpO2=96.0 %, Resp=12 B/min, Pain=0, Maria De Jesus=10, Maynard=2 17:25:03 Balloon Removed. 17:25:12 Wire removed 17:25:14 Wire removed 17:25:20 Catheter was removed 17:25:26 Case End PCI QA completed: Pre-Emil - 3, Post Emil - 3, Type - ~TYPE~, Length - 8 mm, Morphology - ~MORP HOLOGY~, 17:25:27 Indications - ~INDICATIONS~, Pre-Stenosis - 95% and Post Stenosis - 30%. 17:25:48 PCI QA obtained from Solar Installer Pv 17::25 Catheter(s) removed without difficulty Radial Compression Device Used. 15 mLs of air placed in BAND, RADIAL COMPRESSION TR LARGE 29 29 CM. Affected 17:26:28 hand 96 % O2 saturation. 17:26:31 HR=62 bpm, ZEZJ=508/70 mmhg, SpO2=96.0 %, Resp=13 B/min, Pain=0, Maria De Jesus=10, Maynard=2 17:26:42 50 mcg FENTANYL given in lab by Laurent Mary RN in Left Antecubital via Peripheral IV. Orde red by Santos Reyes. 17:28:30 HR=61 bpm, XJGA=937/62 mmhg, SpO2=98.0 %, Resp=13 B/min, Pain=0, Maria De Jesus=10, Maynard=2 17:30:31 HR=63 bpm, EZEO=931/70 mmhg, SpO2=97.0 %, Resp=15 B/min, Pain=0, Maria De Jesus=10, Maynard=2 17:30:41 60 mg EFFIENT given in lab by Laurent Mary RN via Oral. Ordered by Santos Reyes. Assessment: Initial Case, HR=66 BPM, Rhythm=REG, WFTD=180/77 mmhg, Chest Pain=0, Edema=None, Color=Normal, Skin = Warm Right Pulses: Antwan Ped=3, Femoral=3, Radial=3 17:31:48 Lower Right Extremities: Color=Normal Neurological: State=Alert, Ox3, ORELLANA Respiration: Resp=14 B/min, SpO2=97 % 17:32:31 HR=69 bpm, POQB=500/77 mmhg, SpO2=97.0 %, Resp=14 B/min, Pain=0, Maria De Jesus=10, Maynard=2 17:32:55 Vitals capture stopped. End Study - Contrast Media Used In Study Contrast Total Opened (mL) Total Used (mL) Total Wasted (mL) Omnipaque 110 110 0 End Study - Maximum Contrast Load Max Contrast Load (mL) 527.8 End Study - Radiation Exposure Fluoro Time (minutes) 29.7 End Study - Patient Disposition Complications Transferred To Telemetry Bed
--- NOTE | 2016-11-11 18:01 | MB ---
cc: BRENT CHE MD DATE OF CONSULTATION 11/11/16 DATE OF 1945 REASON FOR CONSULTATION Chest pain. HISTORY OF PRESENT ILLNESS 71-year-old male with past medical history significant for known coronary artery disease status post PCI times three [place] [address] Grossman, hypertension, diabetes, hyperlipidemia, obesity who presented to the emergency department with three weeks of chest discomfort described as burning sensation in the center of the chest exacerbated by exertion, relieved by rest. The patient is followed with Dr. Grossman who recommended that the patient present to the emergency department for further evaluation. In the emergency department , first set of cardiac enzymes is remarkable and EKG is a normal sinus rhythm with no acute ST changes. Cardiology has been consulted for further management and evaluation. REVIEW OF SYSTEMS Negative for except for the ones mentioned in the HPI. PAST MEDICAL HISTORY 1. Coronary artery disease status post PCI times three in 2006 (stents were placed in the right coronary artery, proximal and mid segment, in the left circumflex artery proximal segment) 2. Diabetes, 3. Hypertension, 4. Hyperlipidemia, 5. Osteoarthritis 6. Obesity PAST SURGICAL HISTORY 1. Umbilical hernia repair, 2. Bilateral hand trigger finger release 3. Tooth extraction MEDICATIONS Cardiac home medications 1. 80 mg p.o. daily, 2. Lipitor 40 mg p.o. daily. 3. Hydrochlorothiazide 25 mg p.o. daily 4. Aspirin 81 mg p.o. daily. ALLERGIES MACROLIDE FAMILY HISTORY Father at 75 of a myocardial infarction. SOCIAL HISTORY He is a former smoker. He quit in . He reports social alcohol use and denies illicit drug abuse. PHYSICAL EXAMINATION VITAL SIGNS: Temperature 97, respiratory rate 20, pulse 90, blood pressure 177/84, O2 sat 93% on room air. GENERAL: Awake, alert, oriented x3 in no acute distress. NECK: No JVD, no carotid bruits. HEART: Regular rate and rhythm. No murmurs, rubs or gallops. LUNGS: Clear to auscultation bilaterally. No wheezes, rhonchi or rales. ABDOMEN: Soft, nontender, nondistended with positive bowel sounds. EXTREMITIES: No cyanosis or edema. Pulses throughout. LABORATORY DATA CBC - hemoglobin 14, hematocrit 39, platelet count 150. Electrolytes - sodium 143, potassium 3.2, BUN 19, creatinine 0.99. Troponin 0.02 and 0.12. IMAGING STUDIES Chest x-ray - No acute cardiopulmonary process. CTA - no evidence of PE. ASSESSMENT 71-year-old male with known coronary artery disease status post stent that presented with complaints concerning for ACS/non-ST elevation [place]. HAYDER risk score 3. He remains hemodynamically stable and chest pain free at rest. At this point, I think it would be reasonable to perform a left heart cath to assess for progression of coronary artery disease and/or ISR of the stents placed 10 years ago. Risk and benefits of left heart cath/PCI including but not limited to bleeding, infection, acute kidney injury, neurovascular trauma, stroke, emergent bypass surgery and have been explained to the patient. The patient understands the risks and he is willing to proceed. RECOMMENDATIONS 1. Keep n.p.o. for left heart cath/PCI today 2. Continue aspirin, statins and ARB. 3. Start Lopressor 12.5 mg p.o. b.i.d. 4. Get a 2-D echocardiogram. Thank you for the opportunity to take part in the care of this patient. Further management to be determined. MD LUISA Martinez/ /3:36 PM /5:54 PM MTDD
[2016-11-11] MEDS ORDERED: HEPARIN SODIUM - IV 10,000 UNITS/10 ML VIAL IV PRN ×2 (19:45)
--- NOTE | 2016-11-11 20:07 | MA ---
cc: ANGIESANTOS Sarabia DATE November 11, 2016 DATE OF 1945 PROCEDURE PERFORMED 1. Left heart catheterization. 2. Selective right and left coronary angiography. 3. Left ventriculogram. 4. POBA to mid right coronary artery in the setting of ISR. INDICATION Acute coronary syndrome/unstable angina. DESCRIPTION OF PROCEDURE Consent signed. The patient was taken to the cardiac component lab tech in fasting state. The right wrist and groin was prepped and draped in sterile fashion using 1% lidocaine for local anesthesia and micropuncture kit. A 6-Taiwanese sheath was inserted into the right radial artery. Antispasmodic cocktail given , then selective right and left coronary angiography was performed with a JL- 3.5 and JR-4 diagnostic catheters. Angiography was taken in multiple views. The JR-4 diagnostic catheter was introduced into the left ventricle over a wire. This was followed by pressure recordings, left ventriculogram and pullback. We identified in-stent restenosis in the mid segment of the right coronary stent of 95% narrowing but with HAYDER 3 flow. Heparin was given for IV anticoagulation. Then a JR-4 6Fr guide was used to engage the right coronary artery. The vessel was wired with a run-through wire up the wire which was anchored distally in the PDA. The lesion was predilated with a NC 2.5x12 balloon to high atmospheres. However given proximal and mid stents, stenoses and vessel tortuosity it was very challenging to get a balloon into the stenosis segment. We tried multiple approaches including guideliner, body wires. Finally we were able to dilate the lesion with a 3.0 noncompliant balloon and a 3.25 noncompliant balloon all to high atmospheres. We did have flap dissection in the proximal right coronary artery for which 4x12mm drug- eluting stent had to be placed in this area. Final angiographic views revealed the HAYDER III flow and a post stenosis of about 20%. Of note, given slab dissection of proximal area we were not able to use any atherectomy devices. Also, given the tortuosity and a previous placed stents the sculpting balloons and cutting balloons were not able to get to the lesion. The patient tolerated the procedure without complication. Estimated blood loss less than 50 cc. Total contrast 110 cc. The right wrist access site was closed with a TR band. RESULTS LEFT VENTRICLE: The left ventricular pressure was 122/1 with an LVEDP of 2. The aortic pressure was 110/67 with a mean of 85. The left ventriculogram revealed a symmetrically fransisco ventricle with an estimated ejection fraction of about 60%. There was no gradient upon pullback from the left ventricle to the aorta. ANGIOGRAPHY 1. The right coronary artery has mid and proximal stents. There is significant ISR on the midportion of the mid segment stent of about 95%. The PDA is patent with nonobstructive coronary artery disease. The left main is calcified. It has 30% lesion, a long lesion in its mid segment. 2. The left main is long, however, no significant obstructions. 3. The LAD is a small vessel, has minimal luminal irregularities, however, no significant obstructions. There is a significant diagonal vessel high take-up diagonal which is small and has minimal irregularities and no significant obstructions. 4. The left circumflex artery is in a 90 degrees angle, has minimal luminal irregularities. He has a previous stent placed in the proximal segment which is patent. CONCLUSION 1. Successful POBA to In-stent restenosis of the mid-segment of the right coronary artery status 2. Successful PCI/LAURI to proximal RCA RECOMMENDATIONS The patient will be admitted to [facility] for post cath care. He will be started on aspirin and Effient as well as aggressive medical management for his other cardiac risk factors. Santos Reyes MD TRANSPORTATION JOB TITLES/EO /5:38 PM /7:55 PM CARLOS
[2016-11-11] MEDS ORDERED: LOSARTAN 50 MG TAB PO SCH (21:00)
[2016-11-11] MEDS: DOCUSATE SODIUM 50 MG/SENNA 8.6 MG TAB PO SCH (21:00)
[2016-11-11] MEDS ORDERED: ATORVASTATIN 40 MG TAB PO SCH (21:00)
[2016-11-11] MEDS ORDERED: [UNRECOGNIZED DRUG - OTHER] SQ SCH (21:00)
[2016-11-11] MEDS ORDERED: INSULIN GLARGINE 30 UNIT SQ SCH (21:00)
[2016-11-11] MEDS: SODIUM CHLORIDE 0.9% FLUSH 10 ML FLUSH IV FLUSH SCH (21:22)
[2016-11-12] VITALS (11 sets, daily range): BP systolic 124–132; BP diastolic 72–73; PULSE 66–83; RESP 16–20; TEMP 97.4–98.6; O2SAT 97–98
--- NOTE | 2016-11-12 04:13 | PD.CARD.PN ---
Subjective Subjective Remarks no overnight events no CV complaints Objective Medications Current Medications Medications (Trade) Dose Ordered Sig/Maria C Route Start Time Stop Time Status Last Admin (NS Flush) 2 ml UNSCH PRN IV FLUSH 11/11/16 14:30 (NS Flush) 2 ml BID IV FLUSH 11/11/16 21:00 11/11/16 21:22 (Tylenol) 650 mg Q4H PRN PO 11/11/16 14:30 (Burnham 5-325 Mg) 1 tab Q4H PRN PO 11/11/16 14:30 (Morphine Inj) 3 mg Q4HR PRN IV 11/11/16 14:30 (Narcan Inj) 0.4 mg UNSCH PRN IV 11/11/16 14:30 (Sherita-Colace) 1 tab BID PO 11/11/16 21:00 (Milk Of Magnesia Liq) 30 ml Q12H PRN PO 11/11/16 14:30 (Senokot) 17.2 mg Q12H PRN PO 11/11/16 14:30 (Dulcolax Supp) 10 mg DAILY PRN RECTAL 11/11/16 14:30 (Lactulose Liq) 30 ml DAILY PRN PO 11/11/16 14:30 (Lipitor) 40 mg HS PO 11/11/16 21:00 11/11/16 21:22 (Vitamin D3) 2,000 units DAILY PO 11/12/16 09:00 (Glucotrol) 5 mg BIDAC PO 11/11/16 16:00 11/11/16 16:00 (Hydrodiuril) 25 mg DAILY PO 11/12/16 09:00 (KCl) 20 meq DAILY PO 11/12/16 09:00 (Januvia) 50 mg DAILY PO 11/12/16 09:00 Patient Own Medication 1 ea HS SQ 11/11/16 21:00 Patient Own Medication 1 ea DAILY PO 11/12/16 09:00 (Cozaar) 100 mg HS PO 11/11/16 21:00 11/11/16 21:23 (D50w (Vial) Inj) 50 ml UNSCH PRN IV 11/11/16 15:15 (Glucagon Inj) 1 mg UNSCH PRN OTHER 11/11/16 15:15 (Tylenol) 325 mg Q4H PRN PO 11/11/16 17:45 (Aspirin Chew) 81 mg DAILY PO 11/12/16 09:00 (Effient) 10 mg DAILY PO 11/12/16 09:00 (Atropine Inj) 0.5 mg UNSCH PRN IV 11/11/16 17:45 (Zofran Inj) 4 mg Q4H PRN IV 11/11/16 17:45 Vital Signs / I&O Vital Signs Date Time Temp Pulse Resp B/P Pulse Ox O2 Delivery O2 Flow Rate FiO2 11/12/16 04:00 70 11/12/16 03:00 68 11/12/16 02:00 71 11/12/16 01:00 72 11/12/16 00:00 73 11/11/16 23:30 98.4 78 16 131/67 96 11/11/16 23:00 78 11/11/16 22:00 74 11/11/16 21:00 72 11/11/16 20:50 98.7 67 16 148/87 99 11/11/16 18:11 97 Room Air 11/11/16 15:00 58 18 161/77 99 Room Air 11/11/16 14:40 98 21 11/11/16 11:46 66 20 143/80 98 Room Air 11/11/16 10:41 84 20 97 Room Air 11/11/16 10:41 86 18 166/79 97 Room Air 11/11/16 10:41 97 Room Air 11/11/16 10:33 97.5 92 20 177/84 96 Room Air Physical Exam GENERAL: Well-nourished, well-developed patient. SKIN: Warm and dry. HEAD: Normocephalic. EYES: No scleral icterus. No injection or drainage. NECK: Supple, trachea midline. No JVD or lymphadenopathy. CARDIOVASCULAR: Regular rate and rhythm without murmurs, gallops, or rubs. RESPIRATORY: Breath sounds equal bilaterally. No accessory muscle use. GASTROINTESTINAL: Abdomen soft, non-tender, nondistended. EXTREMITIES: No cyanosis, or edema. NEUROLOGICAL: Awake, alert, and oriented x 3. Non-focal. Laboratory Laboratory Tests Test 11/11/16 11/11/16 11:04 14:00 White Blood Count 9.9 TH/MM3 Red Blood Count 4.51 MIL/MM3 Hemoglobin 14.2 GM/DL Hematocrit 39.6 % Mean Corpuscular Volume 87.8 FL Mean Corpuscular Hemoglobin 31.4 PG Mean Corpuscular Hemoglobin 35.7 % Concent Red Cell Distribution Width 13.0 % Platelet Count 150 TH/MM3 Mean Platelet Volume 9.7 FL Neutrophils (%) (Auto) 73.5 % Lymphocytes (%) (Auto) 16.5 % Monocytes (%) (Auto) 7.1 % Eosinophils (%) (Auto) 2.3 % Basophils (%) (Auto) 0.6 % Neutrophils # (Auto) 7.2 TH/MM3 Lymphocytes # (Auto) 1.6 TH/MM3 Monocytes # (Auto) 0.7 TH/MM3 Eosinophils # (Auto) 0.2 TH/MM3 Basophils # (Auto) 0.1 TH/MM3 CBC Comment DIFF FINAL Differential Comment Prothrombin Time 10.2 SEC Prothromb Time International 0.9 RATIO Ratio Activated Partial 23.1 SEC Thromboplast Time Sodium Level 143 MEQ/L Potassium Level 3.2 MEQ/L Chloride Level 110 MEQ/L Carbon Dioxide Level 23.8 MEQ/L Anion Gap 9 MEQ/L Blood Urea Nitrogen 19 MG/DL Creatinine 0.99 MG/DL Estimat Glomerular Filtration 75 ML/MIN Rate Random Glucose 176 MG/DL Calcium Level 8.4 MG/DL Magnesium Level 1.2 MG/DL Total Bilirubin 0.5 MG/DL Aspartate Amino Transf 35 U/L (AST/SGOT) Alanine Aminotransferase 30 U/L (ALT/SGPT) Alkaline Phosphatase 42 U/L Total Creatine Kinase 95 U/L Troponin I 0.09 NG/ML 0.12 NG/ML Total Protein 5.9 GM/DL Albumin 2.9 GM/DL Imaging Last Impressions Chest X-Ray 11/11/16 1037 Signed Impressions: Service Date/Time: Friday, November 11, 2016 10:55 - CONCLUSION: No acute disease. Elder Mckenzie MD CT Angiography 11/11/16 0000 Signed Impressions: Service Date/Time: Friday, November 11, 2016 12:16 - CONCLUSION: 1. Limited examination due to suboptimal contrast bolus timing. No evidence for pulmonary artery and was sent to the segmental level. More distal segmental and subsegmental level branches are not adequately evaluated. 2. Moderate to severe coronary artery calcifications. 3. 6 mm solid subpleural nodule in the anterior right upper lobe with background of mild upper lobe predominant paraseptal emphysema. Followup examination is recommended in 6 months to document stability per 2017 Fleischner criteria. 4. Subcentimeter right inferior thyroid lobe nodule. This may be further evaluated with ultrasound on outpatient basis. Theo Mcgill MD Assessment and Plan Problem List: (1) Elevated troponin Assessment and Plan: s/p POBA to Mid RCA s/p PCI/LAURI to Proximal RCA Recommendations DAPT with ASA and Effient Cont BB, ACEi and statin Start Imdur 30mg PO daily Stable from CV standpoint to be D/C home today. F/U with Dr. Grossman upon discharge (2) Angina at rest (3) Diabetes mellitus (4) Chest pain (5) Hypertension Problem Qualifiers (1) Chest pain: Qualified Code: R07.9 - Chest pain, unspecified type Santos Reyes MD Nov 12, 2016 04:13
[2016-11-12] MEDS ORDERED: ISOSORBIDE MONONITRATE 30 MG TAB PO SCH (07:00)
[2016-11-12] MEDS: INSULIN ASPART SUPPLEMENTAL SCALE SQ SCH (07:00)
[2016-11-12] MEDS: glipiZIDE 5 MG TAB PO SCH (07:05)
--- NOTE | 2016-11-12 08:05 | EKG ---
Date Performed: 11/11/2016 Time Performed: 14:42:45 PTAGE: 71 years EKG: Sinus rhythm NONSPECIFIC ST & T-WAVE ABNORMALITY BORDERLINE ECG PREVIOUS TRACING : 11/11/2016 10.45 DOCTOR: Santos Reyes Interpretating Date/Time 11/12/2016 07:59:09
--- NOTE | 2016-11-12 08:12 | EKG ---
Date Performed: 11/11/2016 Time Performed: 10:45:22 PTAGE: 71 years EKG: Sinus rhythm MODERATE ST DEPRESSION ABNORMAL ECG PREVIOUS TRACING : 02/16/2007 06.58 DOCTOR: Santos Reyes Interpretating Date/Time 11/12/2016 08:05:13
--- NOTE | 2016-11-12 08:17 | EKG ---
Date Performed: 11/12/2016 Time Performed: 05:27:12 PTAGE: 71 years EKG: Sinus rhythm Inferior infarct - age undetermined Abnormal ECG PREVIOUS TRACING : 11/11/2016 14.42 DOCTOR: Santos Reyes Interpretating Date/Time 11/12/2016 08:14:02
[2016-11-12 08:39] LABS: BICARBONATE 28.1 MEQ/L (21.0-32.0)
[2016-11-12] MEDS: SODIUM CHLORIDE 0.9% FLUSH 10 ML FLUSH IV FLUSH SCH (09:00)
[2016-11-12] MEDS ORDERED: PRASUGREL 10 MG TAB PO SCH (09:00)
[2016-11-12] MEDS ORDERED: [UNRECOGNIZED DRUG - OTHER] PO SCH (09:00)
[2016-11-12] MEDS ORDERED: CHOLECALCIFEROL (VIT D3) 1000 UNIT TAB PO SCH (09:00)
[2016-11-12] MEDS: DOCUSATE SODIUM 50 MG/SENNA 8.6 MG TAB PO SCH (09:00)
[2016-11-12] MEDS ORDERED: HYDROCHLOROTHIAZIDE 25 MG TAB PO SCH (09:00)
[2016-11-12] MEDS ORDERED: ASPIRIN 81 MG CHEW TAB CHEW SCH (09:00)
[2016-11-12] MEDS ORDERED: ASPIRIN 81 MG CHEW TAB PO SCH (09:00)
[2016-11-12] MEDS ORDERED: MAGNESIUM 250 MG PO SCH (09:00)
[2016-11-12] MEDS ORDERED: POTASSIUM CHLORIDE 20 MEQ CONTROLLED RELEASE TAB PO SCH (09:00)
[2016-11-12] MEDS ORDERED: ISOS30TA3 PO (09:26)
[2016-11-12] MEDS ORDERED: ASPI81CH25 PO (09:26)
[2016-11-12] MEDS ORDERED: PRAS10TA PO (09:26)
--- NOTE | 2016-11-12 09:26 | HHI.DCPOC ---
Discharge Care Plan Diagnosis: (1) Hypokalemia (2) Diabetes mellitus (3) Chest pain (4) Hypertension (5) Elevated troponin (6) Angina at rest Goals to Promote Your Health * To prevent worsening of your condition and complications * To maintain your health at the optimal level Directions to Meet Your Goals Take your medications as prescribed Follow your dietary instruction Follow activity as directed Keep your appointments as scheduled Take your immunizations and boosters as scheduled If your symptoms worsen call your PCP, if no PCP go to Urgent Care Center or Emergency Room Smoking is Dangerous to Your Health. Avoid second hand smoke Call the 24-hour hour crisis hotline for domestic abuse at Catalino Good MD Nov 12, 2016 09:26
--- NOTE | 2016-11-12 09:33 | HHI.PR ---
Subjective Remarks Follow-up chest pain, elevated troponin. Patient had cardiac catheterization done yesterday with drug-eluting stent placed in the proximal RCA. He denies chest pain or dyspnea this morning. He wants to go home. Objective Vitals Vital Signs Date Time Temp Pulse Resp B/P Pulse Ox O2 Delivery O2 Flow Rate FiO2 11/12/16 07:15 97.4 81 20 124/73 97 11/12/16 07:00 73 11/12/16 06:00 78 11/12/16 05:00 83 11/12/16 04:00 98.6 66 16 132/72 97 11/12/16 04:00 70 11/12/16 03:00 68 11/12/16 02:00 71 11/12/16 01:00 72 11/12/16 00:00 73 11/11/16 23:30 98.4 78 16 131/67 96 11/11/16 23:00 78 11/11/16 22:00 74 11/11/16 21:00 72 11/11/16 20:50 98.7 67 16 148/87 99 11/11/16 18:11 97 Room Air 11/11/16 15:00 58 18 161/77 99 Room Air 11/11/16 14:40 98 21 11/11/16 11:46 66 20 143/80 98 Room Air 11/11/16 10:41 84 20 97 Room Air 11/11/16 10:41 86 18 166/79 97 Room Air 11/11/16 10:41 97 Room Air 11/11/16 10:33 97.5 92 20 177/84 96 Room Air I/O 11/11/16 11/11/16 11/11/16 11/12/16 11/12/16 11/12/16 06:59 14:59 22:59 06:59 14:59 22:59 Intake Total 360 ml Output Total 900 ml Balance -540 ml Intake Oral 360 ml Output Urine Total 900 ml # Bowel Movements 1 Result Diagram: 11/11/16 1104 11/12/16 0644 Imaging Last Impressions Chest X-Ray 11/11/16 1037 Signed Impressions: Service Date/Time: Friday, November 11, 2016 10:55 - CONCLUSION: No acute disease. Elder Mckenzie MD CT Angiography 11/11/16 0000 Signed Impressions: Service Date/Time: Friday, November 11, 2016 12:16 - CONCLUSION: 1. Limited examination due to suboptimal contrast bolus timing. No evidence for pulmonary artery and was sent to the segmental level. More distal segmental and subsegmental level branches are not adequately evaluated. 2. Moderate to severe coronary artery calcifications. 3. 6 mm solid subpleural nodule in the anterior right upper lobe with background of mild upper lobe predominant paraseptal emphysema. Followup examination is recommended in 6 months to document stability per 2017 Fleischner criteria. 4. Subcentimeter right inferior thyroid lobe nodule. This may be further evaluated with ultrasound on outpatient basis. Theo Mcgill MD Objective Remarks General: No acute distress. Heart: Regular rate and rhythm. No murmur. Lungs: Clear to auscultation bilaterally. No wheezes, rales, or rhonchi. Breathing is nonlabored. Abdomen: Soft, obese, nontender, nondistended. Extremities: No lower extremity edema. Psych: Alert and oriented. Procedures 11/11/16 cardiac catheterization Urinary Catheter: No Vascular Central Line Catheter: No A/P Problem List: (1) Chest pain ICD Code: R07.9 Status: Resolved (2) Elevated troponin ICD Code: R74.8 Status: Acute (3) Hypokalemia ICD Code: E87.6 Status: Acute (4) Diabetes mellitus ICD Code: E11.9 Status: Chronic (5) Hypertension ICD Code: I10 Status: Chronic Assessment and Plan 1. Angina: Chest pain has resolved. Status post cardiac catheterization with stent placement. Cleared for discharge by cardiology. Continue aspirin, Effient. 2. Hypertension: Continue HCTZ, telmisartan. 3. Hyperlipidemia: Continue Lipitor. 4. Diabetes mellitus: Continue glipizide, Januvia, Lantus. Diabetic diet following procedure. Monitor Accu-Cheks and cover with sliding scale insulin. 5. Hypokalemia: Supplement potassium. Recheck labs tomorrow as outpatient with results to PCP and cardiology. 6. DVT prophylaxis: SCDs. Discharge Planning Discharge home in stable condition. Follow-up with cardiology and PCP. Heart healthy, diabetic diet. Activity as tolerated. Patient was advised to await cardiology clearance before returning to golf. Problem Qualifiers (1) Chest pain: Qualified Code: R07.9 - Chest pain, unspecified type (2) Diabetes mellitus: Catalino Good MD Nov 12, 2016 09:33
[2016-11-12] MEDS ORDERED: POTASSIUM CHLORIDE 10 MEQ CONTROLLED RELEASE TAB PO ONE (10:00)
--- NOTE | 2016-11-14 08:51 | PQ ---
Physician Query Response Document PATIENT: SUKHDEV ROMAN : 1945 ADMIT DATE: 11/11/2016 2:12 PM DISCH DATE: 11/12/2016 10:33 AM RESPONDING PROVIDER #: [email or web address] QUERY TEXT: Documentation Clarification Your help is requested in clarifying "chest pain elevated troponin" Was NSTEMI 1)rulled out 2)rulled in 3)ACS without [place] 4)CAD w unstable angina without MI5 )othere(please specify) If you have any additional questions/comments and/or concerns please call [email or web address] The patient's Clinical Indicators include: Dr. Good, patient was admitted with chest pain and elevated troponin. Cardiac consult assessment".... concerning for ACS/non- ST elevation [place]" Troponin went from 0.09 on admission up to 0.57 on 11/12/16. Query created by: Jj Feliciano on 11/13/2016 7:46 AM RESPONSE TEXT: Clarification of documentation: Patient had NSTEMI. Electronically signed by: Catalino Good MD 11/14/2016 8:47 AM
== END 2016-11-12 10:33 | disposition home or self-care (01) | DRG 246 ==
LOC: NEPE 10:32 → NEDA 14:12 → HCIN 21:02
PROVIDERS: ADMIT Family Medicine; ATTEND Family Medicine
PROC: 4A023N7 Measurement of Cardiac Sampling and Pressure, Left Heart, Percutaneous Approach (ICD-10-PCS; 2016-11-11)
PROC: B2111ZZ Fluoroscopy of Multiple Coronary Arteries using Low Osmolar Contrast (ICD-10-PCS; 2016-11-11)
PROC: B2151ZZ Fluoroscopy of Left Heart using Low Osmolar Contrast (ICD-10-PCS; 2016-11-11)
PROC: 027034Z Dilation of Coronary Artery, One Artery with Drug-eluting Intraluminal Device, Percutaneous Approach (ICD-10-PCS; principal; 2016-11-11 19:45)
DX: T82.858A Stenosis of other vascular prosthetic devices, implants and grafts, initial encounter (principal); I21.4 Non-ST elevation (NSTEMI) myocardial infarction; E11.9 Type 2 diabetes mellitus without complications; I25.110 Atherosclerotic heart disease of native coronary artery with unstable angina pectoris; I10 Essential (primary) hypertension; Z79.84 Long term (current) use of oral hypoglycemic drugs; E78.00 Pure hypercholesterolemia, unspecified; M19.242 Secondary osteoarthritis, left hand; M19.241 Secondary osteoarthritis, right hand; E87.6 Hypokalemia; E78.5 Hyperlipidemia, unspecified; Z87.891 Personal history of nicotine dependence; Z82.49 Family history of ischemic heart disease and other diseases of the circulatory system; E66.9 Obesity, unspecified; Y71.1 Therapeutic (nonsurgical) and rehabilitative cardiovascular devices associated with adverse incidents; Y92.9 Unspecified place or not applicable
CPT/HCPCS: 71010; 71275; 80048; 80053; 82550; 82948; 83735; 84484; 85002; 85025; 85610; 85730; 92928; 93005; 93458; C1725; C1769; C1874; C1887; C1893; J1644; J1815; J2250; J3010; Q9967

== ENCOUNTER 2017-01-10 20:13 | Emergency (ER) | payer MEDICARE, OTHER ==
[~2017-01-10 20:13] MED LIST changes: -AMLO5TAB96 PO; -ASPI81 PO; +ASPI81CH25 PO; -CLOP75 PO; +GLIP5TAB8 PO; -GLYB1TAB51 PO; +HYDR25TA5 PO; +ISOS30TA3 PO; -KLOR20TA6 PO; +LANTINJ SQ; +LIPI40TA PO; -LIPI80TA16; -LOTE20TA3; +POTA-163 PO; +PRAS10TA PO; -SITA100 PO; +SITA50 PO; +SM M250T PO; +TELM1TAB2 PO; -TELM40 PO; +VITA1000 PO
[2017-01-10 20:14] VITALS: BP 163/86; PULSE 86; RESP 16; TEMP 97.9; O2SAT 96
--- NOTE | 2017-01-10 20:59 | PD ---
HPI Chief Complaint: Injury Time Seen by Provider: 20:59 Travel History International Travel<30 days: No Contact w/Intl Traveler<30days: No Traveled to known affect area: No History of Present Illness HPI 71-year-old male came to the emergency room with history of right knee pain just below his knee joint anteriorly. Patient says that Wednesday he played golf and Wednesday night he was fine. Wednesday when he woke up he started getting pain which progressed through the day. 3:00 at night when he went to get out of his bed to go to the bathroom he was in severe pain when he tried to lift his leg. Since then the pain has been there. It's worse when he tries to lift his foot off the bed. However once he is standing up he is able to walk okay. No history of injury. This has never happened to him before. He noticed a redness and slight swelling in the area where it hurts. He says it's extremely tender to touch. No history of fever or chills. The knee itself does not look swollen. No recent course of antibiotics. [facility] Past Medical History Narrative Medical List of his past medical, surgical, social and family history is reviewed from the nursing note. Arthritis: Yes (FINGERS AND HANDS) Asthma: No Autoimmune Disease: No Heart Rhythm Problems: No Cancer: Yes (skin cancer) Cardiovascular Problems: Yes High Cholesterol: Yes Chest Pain: Yes Congestive Heart Failure: No COPD: No Cerebrovascular Accident: No Diabetes: Yes (type 2) Patient Takes Glucophage: No Diminished Hearing: No Gastrointestinal Disorders: No GERD: No Glaucoma: No Genitourinary: No Headaches: No Hepatitis: Yes (DRUG INDUCED HEP 10+ YRS AGO) Hiatal Hernia: No Hypertension: Yes Implanted Vascular Access Dvce: Yes Musculoskeletal: No Neurologic: No Psychiatric: No Reproductive: No Respiratory: No Myocardial Infarction: No Seizures: No Sleep Apnea: No Thyroid Disease: No Ulcer: No Past Surgical History Abdominal Surgery: No AICD: No Body Medical Devices: heart stents Cardiac Surgery: Yes (3 STENTS IN 2006, 1 STENT IN 2017) Ear Surgery: No Endocrine Surgery: No Eye Surgery: No Genitourinary Surgery: No Gynecologic Surgery: No Neurologic Surgery: No Oral Surgery: Yes (ALL TEETH PULLED) Pacemaker: No Thoracic Surgery: No Other Surgery: Yes ([facility] [employer]) Social History Alcohol Use: Yes (OCCASIONAL WINE) Tobacco Use: No Substance Use: No Allergies-Medications (Allergen,Severity, Reaction): Coded Allergies: erythromycin base (Unverified Allergy, Severe, 12/29/16) Uncoded Allergies: MYCIN (Allergy, Mild, 02/15/07) Comments List of allergies reviewed from the nursing note. Reported Meds & Prescriptions Reported Meds & Active Scripts Active Effient (Prasugrel) 10 Mg Tab 10 Mg PO DAILY Aspirin Low Strength (Aspirin) 81 Mg Chew 81 Mg PO DAILY Isosorbide Mononitrate ER (Isosorbide Mononitrate) 30 Mg Bonny 30 Mg PO DAILY@07 Reported Sm Magnesium (Magnesium) 250 Mg Tab 250 Mg PO DAILY Vitamin D-1000 (Cholecalciferol) 1,000 Unit Tab 2,000 Units PO DAILY Glipizide 5 Mg Tab 5 Mg PO BIDAC Take 30 minutes before a meal Januvia (Sitagliptin Phosphate) 50 Mg Tab 50 Mg PO DAILY Potassium Chloride ER (Potassium Chloride) 20 Meq Tab 20 Meq PO DAILY Telmisartan 80 Mg Tab 80 Mg PO HS Lipitor (Atorvastatin Calcium) 40 Mg Tab 40 Mg PO HS Lantus Solostar Pen Inj (Insulin Glargine) 300 Unit/3 Ml Pen 30 Units SQ HS Hydrochlorothiazide 25 Mg Tab 25 Mg PO DAILY Narrative Medication List of his home medications reviewed from the nursing note. Review of Systems Except as stated in HPI: all other systems reviewed are Neg Physical Exam Narrative GENERAL: Awake, alert, mild distress SKIN: Focused skin assessment warm/dry. Erythema over the right patellar tuberosity with significant tenderness HEAD: Atraumatic. Normocephalic. EYES: Pupils equal and round. No scleral icterus. No injection or drainage. ENT: No nasal bleeding or discharge. Mucous membranes pink and moist. NECK: Trachea midline. No JVD. CARDIOVASCULAR: Regular rate and rhythm. No murmur appreciated. RESPIRATORY: No accessory muscle use. Clear to auscultation. Breath sounds equal bilaterally. GASTROINTESTINAL: Abdomen soft, non-tender, nondistended. Hepatic and splenic margins not palpable. MUSCULOSKELETAL: No obvious deformities. No clubbing. No cyanosis. No edema. Decreased knee extension due to the pain. NEUROLOGICAL: Awake and alert. No obvious cranial nerve deficits. Motor grossly within normal limits. Normal speech. PSYCHIATRIC: Appropriate mood and affect; insight and judgment normal. Data Data Last Documented VS Vital Signs Date Time Temp Pulse Resp B/P (MAP) Pulse Ox O2 Delivery O2 Flow Rate FiO2 01/10/17 20:14 97.9 86 16 163/86 (111) 96 Room Air Orders Orders Knee, Complete (4vws) (01/10/17 ) ^ Knee Immobilizer (01/10/17 21:32) MDM Medical Decision Making Medical Screen Exam Complete: Yes Emergency Medical Condition: Yes Medical Record Reviewed: Yes Differential Diagnosis Patellar tendon rupture, patellar tendinitis, avulsion fracture of the tibial tuberosity Narrative Course 9:45 PM this x-ray was done and I looked at the x-ray myself. Significant bony spurs. No knee joint effusion or fracture appreciated. Patient does not want anything for pain and says the pain is bearable. I've ordered a knee joint immobilizer. Awaiting for the official report on the x-ray. Procedures EKG Prior to Arrival: No Diagnosis Primary Impression: Patellar tendinitis Qualified Codes: M76.51 - Patellar tendinitis, right knee Referrals: Yovanny Melvin MD 2 days Additional Instructions: Please return to the ER if the condition worsens or any other concerns. Keep the knee immobilizer on at all times except for taking shower. Apply cold compress to the area and keep the leg in an elevated position. A Motrin/ ibuprofen/Advil for anti-inflammatory effect. Follow-up with the orthopedist was name and number been provided to you. Disposition: 01 DISCHARGE HOME Condition: Stable Kenneth Banerjee MD Jan 10, 2017 20:59
--- NOTE | 2017-01-10 22:11 | RADRPT ---
EXAM DATE/TIME: 01/10/2017 21:28 [facility] COMPARISON: No previous studies available for comparison. INDICATIONS : Right knee pain with no known trauma, patellar tendon pain. MEDICAL HISTORY : Hypertension. Cardiovascular disease. Diabetes mellitus type II. SURGICAL HISTORY : None. ENCOUNTER: Initial ACUITY: 2 days PAIN SCORE: 3/10 LOCATION: Right knee FINDINGS: Spurring is noted at the insertion of the patellar ligament on the tibia. There is also minimal spur ring at the insertion of the quadriceps tendon on the patella. Mild degenerative changes are noted i nvolving the patellofemoral and femorotibial joints. There is no acute fracture, dislocation or knee joint effusion. CONCLUSION: 1. Spurring at the insertion of the patellar ligament on the tibia and to a lesser extent at the inse rtion of the quadriceps tendon on the patella. 2. Mild degenerative changes involving the patellofemoral and femorotibial joints. 3. No acute fracture, dislocation or knee joint effusion. Elder Mckenzie MD on January 10, 2017 at 21:40 Board Certified Radiologist. This report was verified electronically.
== END 2017-01-10 22:13 | disposition home or self-care (01) ==
LOC: NEPD 20:13
DX: M76.51 Patellar tendinitis, right knee (principal); M19.90 Unspecified osteoarthritis, unspecified site; I10 Essential (primary) hypertension; E11.9 Type 2 diabetes mellitus without complications; E78.00 Pure hypercholesterolemia, unspecified; Z79.84 Long term (current) use of oral hypoglycemic drugs; Z79.82 Long term (current) use of aspirin; Z79.4 Long term (current) use of insulin
CPT/HCPCS: 73564; 99283

== ENCOUNTER 2017-09-07 09:05 | Observation (INO) | payer MEDICARE ==
[2017-09-07] VITALS (10 sets, daily range): BP systolic 108–169; BP diastolic 55–81; PULSE 63–99; RESP 16–20; TEMP 97.2–98.2; O2SAT 97–100
[~2017-09-07] VITALS: Ht 172.7 cm; Wt 90.0 kg
[~2017-09-07 09:05] MED LIST changes: -POTA-163 PO; +POTA10TA2 PO
--- NOTE | 2017-09-07 09:23 | PD ---
HPI Chief Complaint: Chest Pain Time Seen by Provider: 09:23 Travel History International Travel<30 days: No Contact w/Intl Traveler<30days: No Traveled to known affect area: No History of Present Illness HPI 72-year-old male came to the emergency room with his with history of sternal chest pain starting this morning. Patient says that the pain started around 6:30 AM. Pain is nonradiating and is sharp substernally and intermittent in nature. No aggravating or relieving factors identified. No associated shortness of breath, syncopal episode, dizziness or nausea. Patient has had multiple stents put in the last one being in 2016. He does have history of diabetes as well. Vital signs are stable. Patient says currently the pain is almost gone. He took one baby aspirin at home. 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 [facility] Past Medical History Narrative Medical List of his past medical, surgical, social and family history is reviewed from the nursing note. Arthritis: Yes (FINGERS AND HANDS) Asthma: No Autoimmune Disease: No Heart Rhythm Problems: No Cancer: Yes (skin cancer) Cardiovascular Problems: Yes High Cholesterol: Yes Chest Pain: Yes Congestive Heart Failure: No COPD: No Cerebrovascular Accident: No Diabetes: Yes (type 2) Patient Takes Glucophage: No Diminished Hearing: No Gastrointestinal Disorders: No GERD: No Glaucoma: No Genitourinary: No Headaches: No Hepatitis: Yes (DRUG INDUCED HEP 10+ YRS AGO) Hiatal Hernia: No Hypertension: Yes Implanted Vascular Access Dvce: Yes Musculoskeletal: No Neurologic: No Psychiatric: No Reproductive: No Respiratory: No Myocardial Infarction: No Seizures: No Sleep Apnea: No Thyroid Disease: No Ulcer: No Past Surgical History Abdominal Surgery: No AICD: No Body Medical Devices: heart stents Cardiac Surgery: Yes (3 STENTS IN 2006, 1 STENT IN 2017) Ear Surgery: No Endocrine Surgery: No Eye Surgery: No Genitourinary Surgery: No Gynecologic Surgery: No Neurologic Surgery: No Oral Surgery: Yes (ALL TEETH PULLED) Pacemaker: No Thoracic Surgery: No Other Surgery: Yes ([facility] [employer]) Social History Alcohol Use: Yes (OCCASIONAL WINE) Tobacco Use: No Substance Use: No Allergies-Medications (Allergen,Severity, Reaction): Coded Allergies: No Known Allergies (Verified Allergy, Unknown, 09/07/17) Comments No known drug allergies. Reported Meds & Prescriptions Reported Meds & Active Scripts Active Potassium Chloride ER (Potassium Chloride) 10 Meq Tab 10 Meq PO BID Glipizide 5 Mg Tab 5 Mg PO BIDAC Take 30 minutes before a meal Januvia (Sitagliptin Phosphate) 50 Mg Tab 50 Mg PO DAILY Lipitor (Atorvastatin Calcium) 40 Mg Tab 40 Mg PO HS Lantus Solostar Pen Inj (Insulin Glargine) 300 Unit/3 Ml Pen 30 Units SQ HS 30units under the skin daily Effient (Prasugrel) 10 Mg Tab 10 Mg PO DAILY Aspirin Low Strength (Aspirin) 81 Mg Chew 81 Mg PO DAILY Isosorbide Mononitrate ER (Isosorbide Mononitrate) 30 Mg Bonny 30 Mg PO DAILY@07 Reported Sm Magnesium (Magnesium) 250 Mg Tab 250 Mg PO DAILY Vitamin D-1000 (Cholecalciferol) 1,000 Unit Tab 2,000 Units PO DAILY Telmisartan 80 Mg Tab 80 Mg PO HS Hydrochlorothiazide 25 Mg Tab 25 Mg PO BID Narrative Medication List of his home medications reviewed from the nursing note. Review of Systems Except as stated in HPI: all other systems reviewed are Neg Cardiovascular: Positive: Chest Pain or Discomfort Physical Exam Narrative GENERAL: Awake, alert, no obvious distress SKIN: Focused skin assessment warm/dry. HEAD: Atraumatic. Normocephalic. EYES: Pupils equal and round. No scleral icterus. No injection or drainage. ENT: No nasal bleeding or discharge. Mucous membranes pink and moist. NECK: Trachea midline. No JVD. CARDIOVASCULAR: Regular rate and rhythm. No murmur appreciated. RESPIRATORY: No accessory muscle use. Clear to auscultation. Breath sounds equal bilaterally. GASTROINTESTINAL: Abdomen soft, non-tender, nondistended. Hepatic and splenic margins not palpable. MUSCULOSKELETAL: No obvious deformities. No clubbing. No cyanosis. No edema. NEUROLOGICAL: Awake and alert. No obvious cranial nerve deficits. Motor grossly within normal limits. Normal speech. PSYCHIATRIC: Appropriate mood and affect; insight and judgment normal. Data Data Last Documented VS Vital Signs Date Time Temp Pulse Resp B/P (MAP) Pulse Ox O2 Delivery O2 Flow Rate FiO2 09/07/17 09:13 99 20 169/81 (110) 100 Room Air 09/07/17 09:06 97.2 Orders Orders Electrocardiogram (09/07/17 09:27) Basic Metabolic Panel (Bmp) (09/07/17 09:27) Complete Blood Count With Diff (09/07/17 09:27) Magnesium (Mg) (09/07/17:) Prothrombin Time / Inr (Pt) (09/07/17:) Troponin I (09/07/17:) Ecg Monitoring (09/07/17:) Bilateral Bp Monitoring (09/07/17:) Iv Access Insert/Monitor (09/07/17:) Oximetry (09/07/17:) Oxygen Administration (09/07/17:) Aspirin Chew (Aspirin Chew) (09/07/17 09:30) Sodium Chloride 0.9% Flush (Ns Flush) (09/07/17 09:30) Chest, Pa & Lat (09/07/17:) Admit Order (Ed Use Only) (09/07/17 10:51) Labs Laboratory Tests Test 09/07/17 09:15 White Blood Count 10.6 TH/MM3 Red Blood Count 4.50 MIL/MM3 Hemoglobin 14.3 GM/DL Hematocrit 40.3 % Mean Corpuscular Volume 89.5 FL Mean Corpuscular Hemoglobin 31.7 PG Mean Corpuscular Hemoglobin Concent 35.4 % Red Cell Distribution Width 12.9 % Platelet Count 150 TH/MM3 Mean Platelet Volume 9.5 FL Neutrophils (%) (Auto) 74.5 % Lymphocytes (%) (Auto) 14.5 % Monocytes (%) (Auto) 6.6 % Eosinophils (%) (Auto) 4.2 % Basophils (%) (Auto) 0.2 % Neutrophils # (Auto) 7.9 TH/MM3 Lymphocytes # (Auto) 1.5 TH/MM3 Monocytes # (Auto) 0.7 TH/MM3 Eosinophils # (Auto) 0.4 TH/MM3 Basophils # (Auto) 0.0 TH/MM3 CBC Comment DIFF FINAL Differential Comment Prothrombin Time 10.3 SEC Prothromb Time International Ratio 1.0 RATIO Blood Urea Nitrogen 22 MG/DL Creatinine 1.40 MG/DL Random Glucose 244 MG/DL Calcium Level 9.7 MG/DL Magnesium Level 1.3 MG/DL Sodium Level 138 MEQ/L Potassium Level 3.6 MEQ/L Chloride Level 101 MEQ/L Carbon Dioxide Level 26.9 MEQ/L Anion Gap 10 MEQ/L Estimat Glomerular Filtration Rate 50 ML/MIN Troponin I LESS THAN 0.02 NG/ML MDM Medical Decision Making Medical Screen Exam Complete: Yes Emergency Medical Condition: Yes Medical Record Reviewed: Yes Interpretation(s) Twelve-lead EKG was reviewed by me. Normal sinus rhythm, normal axis, nonspecific ST-T wave changes. Heart rate of 92 bpm. Differential Diagnosis ACS, non-STEMI, atypical chest Narrative Course 10:54 AM patient has hyperglycemia. Troponin is negative. Patient was given 2 baby aspirins. I discussed the patient with his bass guitar teacher Dr. Grossman and as per him it is okay to admit him to the chest pain center to be ruled out. Patient does have risk factors such as uncontrolled diabetes. Procedures EKG Prior to Arrival: No Physician Communication Physician Communication Dr. Grossman Diagnosis Primary Impression: Chest pain Qualified Codes: R07.9 - Chest pain, unspecified Additional Impression: Hyperglycemia Admitting Information Admitting Physician Requests: Observation Kenneth Banerjee MD Sep 07, 2017 09:23
[2017-09-07] MEDS ORDERED: ASPIRIN 81 MG CHEW TAB PO ONE (09:30)
[2017-09-07] MEDS ORDERED: SODIUM CHLORIDE 0.9% FLUSH 10 ML FLUSH IVF PRN (09:30)
[2017-09-07 09:54] LABS: AUTOMATED NEUTROPHIL # 7.9 TH/MM3 (1.8-7.7); BASOPHIL % 0.2 % (0.0-2.0); EOSINOPHIL # 0.4 TH/MM3 (0-0.4); EOSINOPHIL % 4.2 % (0.0-4.0); HEMATOCRIT 40.3 % (39.0-51.0); HEMOGLOBIN 14.3 GM/DL (13.0-17.0); LYMPH % 14.5 % (9.0-44.0); LYMPHOCYTE # 1.5 TH/MM3 (1.0-4.8); MEAN CELL VOLUME 89.5 FL (80.0-100.0); MEAN CORPUSCULAR HEMOGLOBIN 31.7 PG (27.0-34.0); MEAN CORPUSCULAR HGB CONC 35.4 % (32.0-36.0); MEAN PLATELET VOLUME 9.5 FL (7.0-11.0); MONO % 6.6 % (0.0-8.0); MONOCYTE # 0.7 TH/MM3 (0-0.9); NEUT % 74.5 % (16.0-70.0); PLATELET COUNT 150 TH/MM3 (150-450); RED CELL DISTRIBUTION WIDTH 12.9 % (11.6-17.2); WHITE BLOOD COUNT 10.6 TH/MM3 (4.0-11.0)
[2017-09-07 10:00] LABS: PROTHROMBIN TIME - PATIENT 10.3 SEC (9.8-11.6)
--- NOTE | 2017-09-07 10:07 | RADRPT ---
EXAM DATE/TIME: 09/07/2017 09:48 [facility] COMPARISON: No previous studies available for comparison. INDICATIONS : Chest pain. MEDICAL HISTORY : Hypertension. Cardiovascular disease. Diabetes mellitus type II. SURGICAL HISTORY : None. ENCOUNTER: Initial ACUITY: 1 day PAIN SCORE: 7/10 LOCATION: Middle chest FINDINGS: PA and lateral views of the chest demonstrate the lungs to be symmetrically aerated without evidence of mass, infiltrate or effusion. The cardiomediastinal contours are unremarkable. Osseous structure s are intact. CONCLUSION: No acute disease. Deacon Faye Jr., MD on September 07, 2017 at 10:03 Board Certified Radiologist. This report was verified electronically.
[2017-09-07 10:13] LABS: BICARBONATE 26.9 MEQ/L (21.0-32.0); CALCIUM 9.7 MG/DL (8.5-10.1); CHLORIDE 101 MEQ/L (98-107); GLOMERULAR FILTRATION RATE 50 ML/MIN (>89); GLUCOSE,RANDOM 244 MG/DL (74-106); MAGNESIUM 1.3 MG/DL (1.5-2.5); SODIUM (NA) 138 MEQ/L (136-145)
[2017-09-07 10:16] LABS: BLOOD UREA NITROGEN 22 MG/DL (7-18)
[2017-09-07 10:17] LABS: TROPONIN I LESS THAN 0.02 NG/ML (0.02-0.05)
--- NOTE | 2017-09-07 10:20 | EKG ---
Date Performed: 09/07/2017 Time Performed: 09:20:56 PTAGE: 72 years EKG: Sinus rhythm NONDIAGNOSTIC INFERIOR Q WAVES BORDERLINE ECG NO PREVIOUS TRACING DOCTOR: Ney Boland Interpretating Date/Time 09/07/2017 10:18:51
--- NOTE | 2017-09-07 11:27 | HHI.HP ---
[facility] Primary Care Physician Christofer Ellsworth MD Chief Complaint Chest pain History of Present Illness This is a 72-year-old male history of CAD and stents that presents to ED via private vehicle with his with a complaint of developing a discomfort in the center of his chest body 30 this morning while he was sitting at home. Discomfort was rated as a 3 out of 10. Lasted 45 minutes. Found nothing to worsen or improve the symptoms. Discomfort did not radiate. Denies shortness of breath, nausea, or diaphoresis. Last cardiac catheterization was October [address] Barajas and there is in-stent restenosis of the RCA and a another stent was placed. Patient states that his symptoms today are not similar to that episode. States he has seen Dr. Grossman within the last 2 weeks for a checkup. Has not had stress testing since the stent was placed. Denies recent illness. Denies fevers or chills. Denies recent travel. Voices compliance with medication. Last took Effient this morning. Review of Systems General: Patient denies fevers, chills, and recent travel. HEENT: Patient denies headache, sore throat, difficulty swallowing. Cardiovascular: Has the chest discomfort as mentioned above. Denies sensation of heart beating rapidly or irregularly. No syncope. Denies diaphoresis. Respiratory: Denies shortness of breath or inspirational chest discomfort. Denies coughing wheezing or hemoptysis. GI: Patient denies nausea, vomiting, diarrhea, abdominal pain, bloody stools. Musculoskeletal: Patient denies joint pain or edema. Denies calf pain or edema. Neurovascular: Patient denies numbness, tingling, weakness in extremities. Denies headache. Endocrine: Denies polyuria and polydipsia. Hematologic: Denies easy bruising. Skin: Denies rash or itching. Past Family Social History Allergies: Coded Allergies: No Known Allergies (Verified Allergy, Unknown, 09/07/17) Past Medical History CAD with stents of the circumflex and RCA. Most recently of the RCA in October 2016 hypertension, hyperlipidemia, diabetes. Past Surgical History Heart catheterizations with interventions. Reported Medications Reported Meds & Active Scripts Active Potassium Chloride ER (Potassium Chloride) 10 Meq Tab 10 Meq PO BID Glipizide 5 Mg Tab 5 Mg PO BIDAC Take 30 minutes before a meal Januvia (Sitagliptin Phosphate) 50 Mg Tab 50 Mg PO DAILY Lipitor (Atorvastatin Calcium) 40 Mg Tab 40 Mg PO HS Lantus Solostar Pen Inj (Insulin Glargine) 300 Unit/3 Ml Pen 30 Units SQ HS 30units under the skin daily Effient (Prasugrel) 10 Mg Tab 10 Mg PO DAILY Aspirin Low Strength (Aspirin) 81 Mg Chew 81 Mg PO DAILY Isosorbide Mononitrate ER (Isosorbide Mononitrate) 30 Mg Bonny 30 Mg PO DAILY@07 Reported Sm Magnesium (Magnesium) 250 Mg Tab 250 Mg PO DAILY Vitamin D-1000 (Cholecalciferol) 1,000 Unit Tab 2,000 Units PO DAILY Telmisartan 80 Mg Tab 80 Mg PO HS Hydrochlorothiazide 25 Mg Tab 25 Mg PO BID Active Ordered Medications Current Medications Medications (Trade) Dose Ordered Sig/Maria C Route Start Time Stop Time Status Last Admin (NS Flush) 2 ml UNSCH PRN IVF 09/07/17 09:30 (Tylenol) 500 mg Q4H PRN PO 09/07/17 11:30 UNV ([place] 7.5-325 Mg) 1 tab Q4H PRN PO 09/07/17 11:30 UNV (Zofran Inj) 4 mg Q6H PRN IV PUSH 09/07/17 11:30 UNV Family History His father had CAD. Social History Patient quit smoking 1989. Prior to that he smoked on average 2 pack of cigarettes daily for 30 years. He has an average a few beers per week. Denies illicit drugs. He is . Physical Exam Vital Signs Vital Signs Date Time Temp Pulse Resp B/P (MAP) Pulse Ox O2 Delivery O2 Flow Rate FiO2 09/07/17 09:13 99 20 169/81 (110) 100 Room Air 09/07/17 09:06 97.2 94 18 146/70 (95) 99 Physical Exam GENERAL: This is a well-nourished, well-developed patient, in no apparent distress. Patient speaks in clear complete sentences. Patient is pleasant. HEENT: Head is atraumatic and normocephalic. Neck is supple without lymphadenopathy and trachea is midline. No JVD or carotid bruits. CARDIOVASCULAR: Regular rate and rhythm without murmurs, gallops, or rubs. RESPIRATORY: Clear to auscultation. Breath sounds equal bilaterally. No wheezes , rales, or rhonchi. Chest wall is nontender. No use of accessory muscles. GASTROINTESTINAL: Abdomen is nontender, nondistended. Abdomen soft. No obvious pulsatile mass or bruit. No CVA tenderness. Strong femoral pulses bilaterally. Normal bowel sounds in all quadrants. MUSCULOSKELETAL: Patient is moving upper and lower extremities freely. No calf tenderness or edema, no Homans sign. Strong pulses in upper and lower extremities. NEUROLOGICAL: Patient is alert and oriented. Cranial nerves 2-12 are grossly intact. No focal deficits and speech is clear. SKIN: No rash and turgor is normal. Laboratory Laboratory Tests Test 09/07/17 09:15 White Blood Count 10.6 Red Blood Count 4.50 Hemoglobin 14.3 Hematocrit 40.3 Mean Corpuscular Volume 89.5 Mean Corpuscular Hemoglobin 31.7 Mean Corpuscular Hemoglobin Concent 35.4 Red Cell Distribution Width 12.9 Platelet Count 150 Mean Platelet Volume 9.5 Neutrophils (%) (Auto) 74.5 Lymphocytes (%) (Auto) 14.5 Monocytes (%) (Auto) 6.6 Eosinophils (%) (Auto) 4.2 Basophils (%) (Auto) 0.2 Neutrophils # (Auto) 7.9 Lymphocytes # (Auto) 1.5 Monocytes # (Auto) 0.7 Eosinophils # (Auto) 0.4 Basophils # (Auto) 0.0 CBC Comment DIFF FINAL Differential Comment Prothrombin Time 10.3 Prothromb Time International Ratio 1.0 Blood Urea Nitrogen 22 Creatinine 1.40 Random Glucose 244 Calcium Level 9.7 Magnesium Level 1.3 Sodium Level 138 Potassium Level 3.6 Chloride Level 101 Carbon Dioxide Level 26.9 Anion Gap 10 Estimat Glomerular Filtration Rate 50 Troponin I LESS THAN 0.02 Result Diagram: 09/07/1791409/07/17914 Imaging Last 48 hours Impressions Chest X-Ray 09/07/17926 Signed Impressions: Service Date/Time: Thursday, September 07, 2017 09:48 - CONCLUSION: No acute disease. Deacon Faye Jr., MD Course Initial EKG is sinus rhythm without significant ST segment depressions or elevations. Caprini VTE Risk Assessment Caprini VTE Risk Assessment: Mod/High Risk (score >= 2) Caprini Risk Assessment Model Point Value = 1 Point Value = 2 Point Value = 3 Point Value = 5 Age 41-60 Minor surgery BMI > 25 kg/m2 Swollen legs Varicose veins or History of unexplained or recurrent spontaneous Oral contraceptives or hormone replacement Sepsis (< 1 month) Serious lung disease, including pneumonia (< 1 month) Abnormal pulmonary function Acute myocardial infarction Congestive heart failure (< 1 month) History of inflammatory bowel disease Medical patient at bed rest Age 61-74 Arthroscopic surgery Major open surgery (> 45 min) Laparoscopic surgery (> 45 min) Malignancy Confined to bed (> 72 hours) Immobilizing plaster cast Central venous access Age >= 75 History of VTE Family history of VTE Factor V Leiden Prothrombin [id number] Lupus anticoagulant Anticardiolipin antibodies Elevated serum homocysteine Heparin-induced thrombocytopenia Other congenital or acquired thrombophilia Stroke (< 1 month) Elective arthroplasty Hip, pelvis, or leg fracture Acute spinal cord injury (< 1 month) Prophylaxis Regimen Total Risk Factor Score Risk Level Prophylaxis Regimen 0-1 Low Early ambulation 2 Moderate Order ONE of the following: *Sequential Compression Device (SCD) *Heparin 5000 units SQ BID 3-4 Higher Order ONE of the following medications: *Heparin 5000 units SQ TID *Enoxaparin/Lovenox 40 mg SQ daily (WT < 150 kg, CrCl > 30 mL/min) *Enoxaparin/Lovenox 30 mg SQ daily (WT < 150 kg, CrCl > 10-29 mL/min) *Enoxaparin/Lovenox 30 mg SQ BID (WT < 150 kg, CrCl > 30 mL/min) AND/OR *Sequential Compression Device (SCD) 5 or more Highest Order ONE of the following medications: *Heparin 5000 units SQ TID (Preferred with Epidurals) *Enoxaparin/Lovenox 40 mg SQ daily (WT < 150 kg, CrCl > 30 mL/min) *Enoxaparin/Lovenox 30 mg SQ daily (WT < 150 kg, CrCl > 10-29 mL/min) *Enoxaparin/Lovenox 30 mg SQ BID (WT < 150 kg, CrCl > 30 mL/min) AND *Sequential Compression Device (SCD) Assessment and Plan Assessment and Plan * Chest pain: Patient will continue to have serial cardiac enzymes and EKGs for ruling out purposes. He will be seen by Dr. Scott of cardiology in the chest pain center. I have also discussed this patient with Dr. Grossman whom the patient follows. Patient will have a Lexiscan in the morning if he rules out. Patient will be discharged home if the stress test is nonischemic with instructions to follow-up with PCP and felt machine mechanic. Return to ED for interval issues. * CAD: We will reassess with stress testing likely in the morning. We will continue most meds, will hold Effient in the morning. * Hypertension: Continue medication. * Hyperlipidemia: Continue medication. * Diabetes: Patient will be on sliding scale insulin coverage while in chest pain center. He will follow diabetic diet. Resume medication at discharge. Patient is stable at this time. He is agreeable to this plan. Jairo Shaw Sep 07, 2017 11:27
[2017-09-07] MEDS ORDERED: DEXTROSE 50% IN WATER 50 ML VIAL(D50) IV PUSH PRN (11:30)
[2017-09-07] MEDS ORDERED: ONDANSETRON HCL 4 MG/2 ML VIAL IV PUSH PRN (11:30)
[2017-09-07] MEDS ORDERED: ACETAMINOPHEN/HYDROcodone 325 MG/7.5 MG TAB PO PRN (11:30)
[2017-09-07] MEDS ORDERED: RESP: ALBUTEROL 2.5 MG/IPRATROPIUM 0.5 MG NEB (PRN) INH (11:30)
[2017-09-07] MEDS ORDERED: ALPRAZolam 0.25 MG TAB PO PRN (11:30)
[2017-09-07] MEDS ORDERED: ACETAMINOPHEN 500 MG CPLT PO PRN (11:30)
[2017-09-07] MEDS ORDERED: GLUCAGON 1 MG/ML VIAL OTHER PRN (11:30)
[2017-09-07] MEDS ORDERED: cloNIDine HCL 0.1 MG TAB PO PRN (11:30)
[2017-09-07] MEDS: INSULIN ASPART SUPPLEMENTAL SCALE SQ SCH ×3 (12:28→21:02)
[2017-09-07] MEDS: PANTOPRAZOLE SOD 40 MG DELAYED RELEASE TAB PO SCH (12:34)
[2017-09-07 14:16] LABS: TROPONIN I LESS THAN 0.02 NG/ML (0.02-0.05)
[2017-09-07 16:32] LABS: TROPONIN I LESS THAN 0.02 NG/ML (0.02-0.05)
--- NOTE | 2017-09-07 18:40 | EKG ---
Date Performed: 09/07/2017 Time Performed: 16:19:35 PTAGE: 72 years EKG: Sinus rhythm NORMAL ECG Since PREVIOUS TRACING , no significant change noted PREVIOUS TRACIN09/07/2017 12.59 DOCTOR: Becky Scott Interpretating Date/Time 09/07/2017 18:40:12
--- NOTE | 2017-09-07 18:42 | EKG ---
Date Performed: 09/07/2017 Time Performed: 12:59:38 PTAGE: 72 years EKG: SINUS BRADYCARDIA POSSIBLE INFERIOR MYOCARDIAL INFARCTION BORDERLINE ECG Since PREVIOUS TRACING , no significant change noted PREVIOUS TRACIN09/07/2017 09.20 DOCTOR: Becky Scott Interpretating Date/Time 09/07/2017 18:41:32
[2017-09-07] MEDS: POTASSIUM CHLORIDE 10 MEQ CONTROLLED RELEASE TAB PO SCH (20:49)
[2017-09-07] MEDS: HYDROCHLOROTHIAZIDE 25 MG TAB PO SCH (20:50)
[2017-09-07] MEDS ORDERED: ATORVASTATIN 40 MG TAB PO SCH (21:00)
[2017-09-07] MEDS ORDERED: LOSARTAN 50 MG TAB PO SCH (21:00)
[2017-09-08] VITALS (7 sets, daily range): BP systolic 97–135; BP diastolic 58–79; PULSE 76–87; RESP 18; TEMP 97.4–98.3; O2SAT 95–99
[2017-09-08] MEDS ORDERED: ISOSORBIDE MONONITRATE 30 MG CR TAB (IMDUR) PO SCH (07:00)
[2017-09-08] MEDS: POTASSIUM CHLORIDE 10 MEQ CONTROLLED RELEASE TAB PO SCH (08:02)
[2017-09-08] MEDS: HYDROCHLOROTHIAZIDE 25 MG TAB PO SCH (08:03)
[2017-09-08] MEDS: PANTOPRAZOLE SOD 40 MG DELAYED RELEASE TAB PO SCH (08:03)
[2017-09-08] MEDS ORDERED: MAGNESIUM 250 MG PO SCH (09:00)
[2017-09-08] MEDS ORDERED: ASPIRIN 325 MG TAB PO SCH (09:00)
[2017-09-08] MEDS ORDERED: [UNRECOGNIZED DRUG - OTHER] PO SCH (09:00)
[2017-09-08] MEDS ORDERED: REGADENOSON INJ 0.4 MG/5 ML SYR ONE (09:24)
--- NOTE | 2017-09-08 11:51 | TR ---
Date Performed: 09/08/2017 Time Performed: 09:32:23 DOCTOR: Aly Ellsworth DRUG LIST: CLINICAL HISTORY: CHEST PAIN REASON FOR TEST: CHEST PAIN REASON FOR ENDING: OBSERVATION: CONCLUSION: COMMENTS: Lexiscan stress test was performed under standard four minute protocol. Radionuclide was injected one minute prior to ending the test. No electrocardiographic abormalities were present t o suggest ischemia. Nuclear imaging and interpretation are pending.
--- NOTE | 2017-09-08 12:42 | RADRPT ---
EXAM DATE/TIME: 09/08/2017 09:07 [facility] COMPARISON: No previous studies available for comparison. INDICATIONS : Left sided chest pain. Angina. Coronary artery disease. DOSE: 35.0 mCi Tc99m Myoview at stress. 11.0 mCi Tc99m Myoview at rest. 0.4 mg Lexiscan STRESS SYMPTOMS: Facial flush and nausea. EJECTION FRACTION: > 70% MEDICAL HISTORY : Hypertension. Diabetes mellitus type 2. SURGICAL HISTORY : Coronary artery stent. ENCOUNTER: Initial ACUITY: 1 day PAIN SCALE: 3/10 LOCATION: Left chest TECHNIQUE: The patient underwent pharmacologic stress with infusion of prescribed dose. Continuous ECG tracing was monitored during stress. Gated SPECT imaging was performed after stress and conventional SPECT i maging was performed at rest. The examination was performed on a SPECT/CT scanner, both attenuation and non-corrected datasets were reviewed. FINDINGS: DISTRIBUTION: The maximum perfused segment at stress is in the lateral wall. PERFUSION STUDY: The pattern of perfusion at stress is within normal limits. GATED STUDY: There is intact wall motion and thickening without hypokinetic or dyskinetic segments. CONCLUSION: 1. Unremarkable myocardial perfusion scan. RISK CATEGORY: Low (<1% Annual Mortality Rate) Aly Bronson MD on September 08, 2017 at 12:38 Board Certified Radiologist. This report was verified electronically.
--- NOTE | 2017-09-08 12:50 | HHI.DCPOC ---
Discharge Care Plan Diagnosis: (1) Chest pain (2) CAD (coronary artery disease) (3) H/O heart artery stent (4) Hypertension (5) Hyperlipidemia (6) Diabetes mellitus Goals to Promote Your Health * To prevent worsening of your condition and complications * To maintain your health at the optimal level Directions to Meet Your Goals Take your medications as prescribed Follow your dietary instruction Follow activity as directed Keep your appointments as scheduled Take your immunizations and boosters as scheduled If your symptoms worsen call your PCP, if no PCP go to Urgent Care Center or Emergency Room Smoking is Dangerous to Your Health. Avoid second hand smoke Call the 24-hour hour crisis hotline for domestic abuse at Jairo Shaw Sep 08, 2017 12:50
== END 2017-09-08 14:06 | disposition home or self-care (01) ==
LOC: NEPC 09:05 → NEDA 10:53 → NEPHCDU 12:20
PROVIDERS: ADMIT Internal Medicine Interventional Cardiology; ATTEND Internal Medicine Interventional Cardiology
DX: R07.9 Chest pain, unspecified (principal); I25.10 Atherosclerotic heart disease of native coronary artery without angina pectoris; E11.65 Type 2 diabetes mellitus with hyperglycemia; I10 Essential (primary) hypertension; E78.5 Hyperlipidemia, unspecified; R11.0 Nausea; Z87.891 Personal history of nicotine dependence; Z95.5 Presence of coronary angioplasty implant and graft
CPT/HCPCS: 71046; 78452; 80048; 82550; 82948; 83735; 84484; 85025; 85610; 93005; 93017; 99285; A9502; G0378; J1815; J2785